=== PATIENT | female | born 1950 | race Caucasian/White ===

== ENCOUNTER 2018-04-14 02:25 | Outpatient (CLI) | payer MEDICARE, BC, SELFPAY ==
--- NOTE | 2018-04-14 11:59 | PTTR_ITS ---
DATE: 04/14/18 SUBJECTIVE: Pt states that she is doing ok for the most part really feels good after the mobilization. OBJECTIVE: Manual therapy: ([id number]). Pt placed in the supine position receiving gentle traction through the long axis of the (R) LE and then placed in side lying receiving hip extension coordinated with knee flexion for mobilizing the rectus femoris and hip flexor. Pt then mobilized with IASTM through the piriformis, lateral gluteals utilizing down regulation techniques via long brush strokes and then cross grain feathering techniques to further soften muscle tension and mechano receptor stimulation. Direct treatment time: 30 minutes Total treatment time: 30 minutes
--- NOTE | 2018-04-14 16:37 | DI.REPORT_ITS ---
SYMPTOM/DIAGNOSIS: OSTEOPENIA, M85.88 DEXA SCAN: The scanogram of the dorsolumbar spine is unremarkable. For the left forearm, a T score of -1.6 and a Z score of 0.2 are within the normal range. For the left hip, a T score of 0.8 and a Z score of 0.5 indicate osteopenia and an increased fracture risk. For the lumbar spine, a T score of - 1.6 and a Z score of 0.3 are consistent with osteopenia and an increased fracture risk.
== END 2018-04-14 02:26 ==
PROVIDERS: PCP Family Medicine; Visit Provider Family Medicine
DX: M85.88 Other specified disorders of bone density and structure, other site (principal)
CPT/HCPCS: 77080

== ENCOUNTER 2018-04-14 14:30 | Outpatient (RCR) | payer MEDICARE, BC, SELFPAY ==
--- NOTE | 2018-03-18 15:59 | PTTR_ITS ---
DATE: 03/18/18 SUBJECTIVE: Trena reporting being quite sore through the right low back and lateral hip. She states that she has been doing some of her HEP although has not been able to get into the [place] to perform her aquatic exercises. OBJECTIVE: Manual therapy: ([id number]). Began in supine position for long axis traction through LE's unilaterally and bilaterally to unload lumbar spine. Perform flexion based stretching including single knee to chest stretch, hamstring stretch and piriformis stretching. She is quite irritated with all motions. In prone position perform stretching of her quads which again is quite irritated. She then receives STM throughout the right QL, lumbar paraspinals, piriformis and lateral hip musculature. She is quite tender over the piriformis and she does not tolerate trigger point release here. She has a follow up next week. Direct treatment time: 25 minutes Total treatment time: 25 minutes Akila Stephenson PTA
--- NOTE | 2018-03-23 14:11 | PTTR_ITS ---
DATE: 03/23/18 SUBJECTIVE: Pt reports being a little sore after last session. Has not been able to start aquatic exercises as of yet due to weather, is planning to begin those today. During session, reports feeling much less sore compared to last treatment. OBJECTIVE: Manual therapy: ([id number]). With pt in supine, stretches applied to glute, piriformis, IT band, hamstring. With pt in prone, STM to QL, iliocostalis, lumbar paraspinals, glute, piriformis. High tone, tps noted, TPR applied to piriformis, glute med, and along inferior aspect of iliac crest. No TP or tenderness noted in low back. Direct treatment time: 30 minutes Total treatment time: 30 minutes
--- NOTE | 2018-03-27 14:42 | PTTR_ITS ---
DATE: 03/27/18 SUBJECTIVE: I am doing okay. I am starting to notice the difference in how I feel. OBJECTIVE: Manual therapy: ([id number]): Patient was placed in supine and mobilized with gentle long axis traction through the right lower extremity with soft movement into hip abduction. She was mobilized with hip flexion under gentle traction to 95 degrees but this was a little more uncomfortable. Patient then stretched through hip extension coordinated with knee flexion for mobilization of the rectus femoris and proximal hip flexor. She was mobilized with hip in neutral and anterior glide of the femur on a fixed pelvis. In sidelying she is mobilized with IASTM through the posterior greater trochanter, lateral gluteals and along the course of the sacrum with down regulation techniques which patient tolerated very well and noted significant improvement in her symptoms. Direct treatment time: 30 minutes of direct patient care
--- NOTE | 2018-03-30 12:09 | PTTR_ITS ---
DATE: 03/30/18 SUBJECTIVE: Reports feeling significantly better, although still having symptoms occasionally, especially after long periods of standing. Symptoms alleviate after sitting for a few minutes. OBJECTIVE: Manual therapy: ([id number]). With pt in supine, unilateral and bilateral unloading of low back / hip. Stretch applied to right hamstring, glute, piriformis, ITB and adductors. Pt turned to prone, STM to right glute region, especially piriformis origin. TPs noted, tenderness reported all along SI border. TPR unsuccessfully applied to origin of piriformis, with pt noting that symptoms increase with prolonged pressure. Moist hot pack applied at end of session x10 minutes. Direct treatment time: 25 minutes Total treatment time: 35 minutes
--- NOTE | 2018-04-06 11:11 | PTTR_ITS ---
DATE: 04/06/18 SUBJECTIVE: I think that things are going pretty well. It definitely feels quite a bit better. OBJECTIVE: Manual therapy: ([id number]): Patient was guided through light long axis traction through the right lower extremity. She was mobilized with stretch of the hamstrings and piriformis with gentle active isolated stretching technique. Patient was gently abducted through the right hip within her range of comfort and then placed in sidelying. Through sidelying patient was mobilized with hip extension coordinated with knee flexion. She is then mobilized with IASTM through the TFL, ITband proximal course, gluteals and piriformis with use of long brush strokes for down regulation. She tolerated treatment well. Direct treatment time: 30 minutes of direct patient care
== END 2018-04-17 23:59 | disposition home or self-care (01) ==
LOC: PT 14:30
PROVIDERS: PCP Family Medicine; Referring Provider Family Medicine; Visit Provider Family Medicine
DX: M25.551 Pain in right hip (principal); M24.851 Other specific joint derangements of right hip, not elsewhere classified; M16.11 Unilateral primary osteoarthritis, right hip; M54.5 Low back pain
CPT/HCPCS: 97140

== ENCOUNTER 2019-02-21 10:05 | Emergency (ER) | payer MEDICARE, BC, SELFPAY ==
[2019-02-21 10:10] VITALS: BP 174/95; PULSE 61; RESP 14; TEMP 36.7; O2SAT 95
--- NOTE | 2019-02-21 10:17 | W.ED.GENAD ---
Discharge Plan Disposition Patient Disposition: HOME Condition: Stable Discharge Details Chief Complaint: Orthopedic Clinical Impression: Left knee sprain Primary Care Provider: Lorraine Garcia ED Provider: Genna Hoyos Home Meds and New Rx's Prescriptions: Continued hydrochlorothiazide 12.5 mg tablet 12.5 mg PO DAILY Qty: 90 RF: 4 prednisone 20 mg tablet 40 mg PO DAILY Qty: 10 RF: 0 venlafaxine 75 mg tablet extended release 24hr 75 mg PO DAILY Qty: 90 RF: 3 No Action calcipotriene 0.005 % cream 1 applic TP PRN PRNRF: 0 clobetasol 0.05 % ointment 1 applic TP PRN PRNRF: 0 Discharge Instructions Instructions: Knee Sprain (ED) Additional Instructions: Rest, ice, elevate left knee as much as possible. Limit weight bearing to allow knee to rest. Use a cane if needed. Apply lew wrap or knee brace to help with pain and swelling. Alternate tylenol and Motrin as needed and directed for pain. If you have no relief in symptoms in the next week, follow-up with orthopedics. Return to the emergency department if you develop any worsening or concerning symptoms of fever, lower leg pain or swelling. Referrals: Joey Esteban MD [ [facility] STAFF PHYSICIAN] - Discharge Data Discharge Date/Time-TO BE ENTERED AT DEPARTURE: 02/21/19 10:34 Discharge Physician: Genna Hoyos Medical Decision Making 68yo F w/ L knee pain and swelling x 5 days after twisting her L knee while getting into a pontoon boat. Minimal left knee edema and pain with range of motion, mostly flexion. No evidence of a septic joint. No calf tenderness. Neurovascularly intact. No evidence of trauma or bony deformity. BP 174/95 on arrival. Rechecked and 135/80. Discussed the differential diagnosis can also include Sneed's cyst, ligament tear but with reported history, appears most likely consistent with sprain. Patient offered x-ray but declined. Will give a dose of ibuprofen. She has not taken any medicine for pain since onset. She is instructed to alternate Tylenol and Motrin for pain, rest, ice, elevate. She is instructed to follow-up with orthopedics if her symptoms do not improve or worsen over the next week. HPI General Mode of arrival: ambulatory. Date/Time Provider Initiated Documentation: 02/21/19 10:06. Limitations to Documentation: no limitations. Information obtained by: patient. HPI Narrative: Patient is a 68-year-old female presents with left knee pain for the past 5 days that started after getting into a pontoon boat. Patient states she feels like when she stepped and she twisted her knee. She states since then she has had left anterior and lateral knee pain. States the pain is worse with flexion and weightbearing. She has not taken any medication for pain. She admits to a remote history of meniscus repair in her left knee. She denies any fever, hip, calf, ankle or foot pain. Related Data Home Medications Medication Instructions Recorded Confirmed hydrochlorothiazide 12.5 mg tablet 12.5 mg PO DAILY #90 tab 10/15/18 02/21/19 prednisone 20 mg tablet 40 mg PO DAILY #10 tab 02/17/19 02/21/19 venlafaxine ER 75 mg 75 mg PO DAILY #90 tab 02/17/19 02/21/19 tablet,extended release 24 hr calcipotriene 1 applic TP PRN PRN 02/21/19 02/21/19 clobetasol 1 applic TP PRN PRN 02/21/19 02/21/19 Previous Rx's Medication Instructions Recorded hydrochlorothiazide 12.5 mg tablet 12.5 mg PO DAILY #90 tab 10/15/18 prednisone 20 mg tablet 40 mg PO DAILY #10 tab 02/17/19 venlafaxine ER 75 mg 75 mg PO DAILY #90 tab 02/17/19 tablet,extended release 24 hr Allergies Allergy/AdvReac Type Severity Reaction Status Date / Time No Known Allergies Allergy Unverified 02/21/19 10:26 General Stated Complaint: Orthopedic PAULA: 4 Review of Systems Review of Systems All systems reviewed & are unremarkable except as noted in HPI and below Constitutional Reports as per HPI, Denies chills and Denies fever(s) Eyes Denies blurry vision ENT Denies dizziness, Denies sore throat and Denies throat swelling Cardiovascular Denies chest pain and Denies dyspnea Respiratory Denies cough and Denies dyspnea Gastrointestinal Denies abdominal pain, Denies diarrhea and Denies vomiting Genitourinary Denies hematuria and Denies dysuria Musculoskeletal Denies back pain, Denies numbness and Reports other (left knee pain ) Integumentary/Breasts Denies lesions and Denies rash Neurologic Denies dizziness, Denies focal weakness and Denies numbness Allergic/Immunologic Denies throat swelling [facility] Medical History Osteoarthritis of left knee (Chronic) Psoriasis (Chronic) Osteopenia (Chronic 03/03/18) Essential hypertension (Chronic 03/03/18) Depression (Chronic) Degeneration of lumbar intervertebral disc (Chronic) Cervical spondylosis (Chronic) Cervical radiculopathy (Chronic) Acute right-sided low back pain with right-sided sciatica (Chronic 03/03/18) Syncope (Resolved) Surgical History H/O medial meniscus repair of left knee (Acute) Family History Mother Diabetes Renal failure Father NE (myocardial infarction) Neoplasm Brother No problems noted. Brother No problems noted. Brother No problems noted. Grandfather Diabetes Heart disease Grandfather No problems noted. Grandmother Diabetes Grandmother Neoplasm Daughter No problems noted. Daughter No problems noted. Social History Smoking/Tobacco Use Status: Never Alcohol Intake: current Alcohol Intake frequency: a few times a month Substance use type: does not use Household members: other Details: 2 Duration: 15-30 minutes/day Frequency: daily Dana/Buddhism: Temple Seatbelt use: always Helmet use: Yes Helmet use: always Do you feel safe at home: Yes Exam Const General: cooperative, healthy appearing and no acute distress HENMT Head: normal to inspection Mouth: oral mucosae normal Eyes General: appearance normal, both eyes and all related structures Neck Neck: normal visual inspection Resp Effort & Inspection: normal respiratory effort and able to speak in complete sentences Cardio Rate: regular rate Skin General skin exam: no rashes or lesions noted Neuro General: alert, awake and oriented x3 Motor: muscle tone normal throughout Extrem Other: L knee: Minimal anterior knee edema and pain with range of motion, worse with flexion. No erythema. No pain with extension. Negative anterior/posterior drawer tests. Some pain with varus stress. No laxity with varus stress. No pain or laxity with valgus or varus stress. Negative Kody's test. No left calf tenderness. Left DP/PT pulses intact. Psych Appearance: grossly normal Affect: normal affect Course Vital Signs Temperature 98.1 F 02/21/19 10:10 Pulse 61 02/21/19 10:10 Respiratory Rate 14 02/21/19 10:10 Blood Pressure 174/95 H 02/21/19 10:10 Pulse Oximetry 95 02/21/19 10:10 Temperature 98.1 F 02/21/19 10:10 Temperature Source Temporal Artery Scan 02/21/19 10:10 Pulse 61 02/21/19 10:10 Respiratory Rate 14 02/21/19 10:10 Blood Pressure 174/95 H 02/21/19 10:10 Blood Pressure Position Sitting 02/21/19 10:10 Pulse Oximetry 95 02/21/19 10:10 Oxygen Delivery Method Room Air 02/21/19 10:10 Oxygen Flow Rate 0 02/21/19 10:10 Pain Level 8 02/21/19 10:10
[2019-02-21] MEDS: Ibuprofen 600 MG TAB PO (10:25)
[2019-02-21 10:27] VITALS: BP 135/80; PULSE 56; RESP 18; O2SAT 98
== END 2019-02-21 10:34 | disposition home or self-care (01) ==
PROVIDERS: Emergency Provider Physician Assistant; PCP Family Medicine
DX: S83.92XA Sprain of unspecified site of left knee, initial encounter (principal); I10 Essential (primary) hypertension; M17.12 Unilateral primary osteoarthritis, left knee; V93.83XA Other injury due to other accident on board other powered watercraft, initial encounter
CPT/HCPCS: 99282

== ENCOUNTER 2019-03-02 01:16 | Outpatient (CLI) | payer MEDICARE, BC, SELFPAY ==
--- NOTE | 2019-03-02 13:00 | DI.MRI_ITS ---
SYMPTOMS/DIAGNOSIS: LOW BACK PAIN MRI OF THE LUMBAR SPINE: Routine noncontrast examination was performed. Comparison is 11/17/13. The conus medullaris has a normal appearance and location. At L 5 - S 1 there is degenerative disc disease. There is a small diffuse disc bulge and degenerative changes of the facets. No significant central spinal canal stenosis is seen. Mild narrowing of the neural foramen is seen bilaterally. At L 4 - 5 there is degenerative disc disease. There is a mild diffuse disc bulge. There are degenerative changes of the facets. There is mild narrowing of the left neural foramen. No significant right neural foraminal stenosis is seen. At L 3 - 4 there is degenerative disc disease. There is a mild diffuse disc bulge. No focal disc herniation, central spinal canal or significant neural foraminal stenosis is present. L 2 - 3 and L 1 - 2 shows no focal disc herniation, central spinal canal or neural foraminal stenosis. The marrow signal is within normal limits apart from the degenerative endplate signal changes. IMPRESSION: Mild multi-level degenerative disc disease and facet arthropathy with multiple level mild neural foraminal narrowing as described above.
== END 2019-03-02 01:36 ==
PROVIDERS: PCP Family Medicine; Visit Provider Family Medicine
DX: M54.5 Low back pain (principal); M51.37 Other intervertebral disc degeneration, lumbosacral region; M47.817 Spondylosis without myelopathy or radiculopathy, lumbosacral region
CPT/HCPCS: 72148

== ENCOUNTER 2019-03-17 13:17 | Outpatient (CLI) | payer MEDICARE, BC, SELFPAY ==
--- NOTE | 2019-03-17 10:46 | DI.RAD_ITS ---
SYMPTOMS/DIAGNOSIS: RT SHOULDER PAIN, LT KNEE PAIN RIGHT SHOULDER: No bony or joint abnormality is identified. LEFT KNEE: The medial and lateral tibiofemoral joint spaces are intact. There is narrowing of the patellofemoral joint and hypertrophic spurring is identified. Findings consistent with severe DJD involving the patellofemoral joint.
== END 2019-03-17 13:37 ==
PROVIDERS: PCP Family Medicine; Referring Provider Family Medicine; Visit Provider Student in an Organized Health Care Education/Training Program
DX: M25.562 Pain in left knee (principal); S49.91XA Unspecified injury of right shoulder and upper arm, initial encounter; M25.511 Pain in right shoulder; M17.12 Unilateral primary osteoarthritis, left knee; M75.81 Other shoulder lesions, right shoulder; X58.XXXA Exposure to other specified factors, initial encounter; I10 Essential (primary) hypertension
CPT/HCPCS: 20610; 73562; 99204; 99214; 73030; J1040

== ENCOUNTER → 2019-04-29 09:48 | Outpatient (BNVA) | payer MEDICARE, BC, SELFPAY | PROVIDERS: PCP Family Medicine; Referring Provider Family Medicine; Visit Provider Student in an Organized Health Care Education/Training Program | DX: M17.12 Unilateral primary osteoarthritis, left knee; M25.511 Pain in right shoulder; M75.81 Other shoulder lesions, right shoulder; I10 Essential (primary) hypertension | CPT/HCPCS: 99213 ==

== ENCOUNTER 2019-06-04 01:39 | Outpatient (CLI) | payer MEDICARE, BC, SELFPAY ==
--- NOTE | 2019-06-04 09:28 | DI.MRI_ITS ---
EXAM: MR UPPER JOINT RT WO CLINICAL HISTORY: Persistent R shoulder pain and weakness M25.511 TECHNIQUE: Multiplanar multisequence MRI was performed. COMPARISON: XR shoulder RT complete 2+V from 03/17/2019 FINDINGS: There is a small glenohumeral joint effusion. Fluid versus synovial cyst or ganglion is seen in the s ubcoracoid bursa. There is small amount of fluid in the subacromial subdeltoid bursa. There are mild degenerative changes of the AC joint causing some impingement on the distal supraspinatus muscle. The re is no muscle atrophy. There is mild thickening anteriorly in the supraspinatus tendon as well as s ome increased signal within the tendon. No focal tear is visible. The findings are consistent with te ndinosis. Infraspinatus, subscapularis and biceps tendons appear intact. No labral defects are seen. The marrow signal appears normal. IMPRESSION: Supraspinatus tendinosis. Fluid versus ganglion or synovial cyst in the subcoracoid bursa.
== END 2019-06-04 01:59 ==
PROVIDERS: PCP Family Medicine; Visit Provider Student in an Organized Health Care Education/Training Program
DX: M25.511 Pain in right shoulder (principal); M75.81 Other shoulder lesions, right shoulder; M25.411 Effusion, right shoulder; M19.011 Primary osteoarthritis, right shoulder
CPT/HCPCS: 73221

== ENCOUNTER → 2019-06-10 14:05 | Outpatient (BNVA) | payer MEDICARE, BC, SELFPAY | PROVIDERS: PCP Family Medicine; Referring Provider Family Medicine; Visit Provider Student in an Organized Health Care Education/Training Program | DX: M71.311 Other bursal cyst, right shoulder (principal); M75.81 Other shoulder lesions, right shoulder; I10 Essential (primary) hypertension | CPT/HCPCS: 99213 ==

== ENCOUNTER 2019-07-14 07:47 | Day surgery (SDC) | payer MEDICARE, BC, SELFPAY ==
[2019-07-14] VITALS (7 sets, daily range): BP systolic 109–126; BP diastolic 34–79; PULSE 60–65; RESP 12–18; TEMP 36.4–36.8; O2SAT 93–96
[2019-07-14] MEDS: Lactated Ringers 1,000 ML 80 ML IV ×2 (08:10→11:33)
[2019-07-14] MEDS: Bupivacaine 0.5% Pres-Free 30 ML VIAL (08:50)
[2019-07-14] MEDS: Bupivacaine LIPOSOME/PF 133 MG/10 ML VIAL IJ (08:50)
[2019-07-14] MEDS: ceFAZolin 2 GM/50 ML BAG IVPB (08:55)
[2019-07-14] MEDS: EPINEPHrine 1 MG/ML AMP pres-free (10:00)
[2019-07-14] MEDS: Normal Saline Flush 10 ML SYR IV (11:19)
[2019-07-14] MEDS: HYDROmorphone 2 MG/ML VIAL IVP (11:19)
--- NOTE | 2019-07-14 11:25 | W.PM.DSUDISC ---
Discharge Plan Disposition Patient Disposition: HOME Condition: Good Discharge Details Reason For Visit: (R) SHOULDER GANGLION CYST, RTC TENDONITIS Attending Provider: Joey Esteban Primary Care Provider: Bentley Hernandez Home Meds and New Rx's Prescriptions: New acetaminophen 500 mg tablet 500 mg PO Q6H PRN (Reason: pain) Qty: 90 RF: 3 aspirin 81 mg tablet,delayed release (DR/EC) 81 mg PO DAILY Qty: 30 RF: 0 ibuprofen 600 mg tablet 600 mg PO TID PRNQty: 90 RF: 3 hydrocodone-acetaminophen 7.5-325 mg tablet 1 tab PO Q6H PRN (Reason: pain) Qty: 8 RF: 0 Continued hydrochlorothiazide 12.5 mg tablet 12.5 mg PO DAILY Qty: 90 RF: 4 venlafaxine 75 mg tablet extended release 24hr 75 mg PO DAILY Qty: 90 RF: 3 calcipotriene 0.005 % cream 1 applic TP PRN PRNRF: 0 Discontinued acetaminophen 500 mg capsule 500 mg PO .COMPLEX PRNRF: 0 ibuprofen 200 mg capsule 400 mg PO BID PRNRF: 0 Discharge Instructions Stand Alone Forms: Eulalia Shoulder Arthro Referrals: Joey Esteban MD [ [facility] STAFF PHYSICIAN] - Equipment/Supplies: Sling Activity:: Activity as Tolerated Remove Dressings/Wound Care:: 72 hours Shower/Bathe:: 72 hours Diet:: As Tolerated Discharge Orders Discharge Orders: Discharge Order (Routine); Ordered 07/14/19 Ordered By: Joey Esteban DS: Diagnosis Discharge Diagnosis (1) Right rotator cuff tendonitis: Status: Acute (2) Synovial cyst of shoulder: Status: Acute (3) Arthritis of right acromioclavicular joint: Status: Acute
--- NOTE | 2019-07-14 12:02 | W.PM.OP ---
Date of service: 07/14/19 Time of Service: 12:02 Operative Note Operative Note DATE OF PROCEDURE: 07/14/19 PRE-OP DIAGNOSIS: Right Shoulder Rotator Cuff Tendinitis, AC Arthritis, Intraarticular Cyst POST-OP DIAGNOSIS: other (Right Shoulder Partial Articular and Bursal Rotator Cuff Tear, AC Arthritis, Inflammatory Synovitis, Loose Bodies, Subacromial Spur and Impingement.) PROCEDURE: - Mini-Open Distal Clavicle Excision - Extensive debridement of anterior and posterior glenohumeral joint and rotator cuff and rotator interval - Subacromial Debridement with Acromioplasty SURGEON: Joey Esteban SURGICAL TECHNOLOGY INSTRUCTOR: Tushar Kaba ANESTHESIA: GETA and regional ESTIMATED BLOOD LOSS: 0 PATHOLOGY: none sent COMPLICATIONS: None Patient was transported to: PACU Patient's condition: stable Indications: I have seen Trena in clinic for a painful shoulder. Pathology was confirmed based on MRI and exam findings. Nonoperative measures were exhausted but disability and pain persisted. I discussed shoulder arthroscopy and procedures. I reviewed the risks of the procedures to include, but not limited to, bleeding, infection, pain, stiffness, damage to nerves or vessels, recurrence, hardware failure, blood clot. Despite these risks, the patient elected to proceed. Findings: There were signs of arthrosis of the distal clavicle; a 1cm wedge was resected A diagnostic arthroscopy was performed with the following findings: Articular Side - Glenohumeral Joint: Grade II/III chondromalacia over the superior half of the humeral head. Grade I changes over the anterior glenoid. - Labrum: Fraying of the anteiror labrum and Type II SLAP tear with elevation of the superior labrum from the glenoid. - Cuff: Partial tearing of the crescent, approximatetly 4-5mm - Biceps: Diffuse inflammatory changes. Subacromial Side - Bursal: Thickened bursitis throughout - Rotator Cuff: Small area of partial tearing over the posterior greater tuberosity approximately 0.5x0.5cm and 3-4 mm in depth - Pointed anterolateral spur from the acromion. Procedure Description: Trena was greeted in the preoperative holding area where the correct side was identified and marked. The consent was reviewed with the patient and signed. The history and physical was updated. All questions were answered. Trena was taken back to the PACU for administration of an intrascalene nerve block. She was then taken to the operating room. The patient was placed into the supine position on the operating room table. A general anesthetic was administered. She was then positioned in the beach chair position. All bony prominences were well padded. The head was placed in a foam shaft headman in a neutral position. Prophylactic antibiotics in the form of Cefazolin were administered. The right arm/shoulder was then prepped with Chloraprep and draped in a standard fashion with stockinette and shoulder drape. A timeout to confirm correct identity, side and site, procedure, allergies, anesthesia, and medical concerns was performed. The arm was placed into a pneumatic mandel, [id number]. The shoulder arthroscopy was then performed. The glenohumeral joint was injected with 20 cc of normal saline with good flow back. A standard posterior portal was made and the joint was entered atraumatically with a blunt arthroscope. Once inside we had good visualization of the structures of the glenohumeral joint. On the MRI, she had an apparent intraarticular cyst. However, there was no separate structure identied. There was notable synovitis and inflammatory change anteriorly within the rotator interval and around the subscapularis. An anterior portal was established with spinal needle localization. A 6.5 mm cannula was inserted. A probe was then used to perform a diagnostic arthroscopy. There is noted to be some significant cartilage damage of the glenoid humeral joint. The anterior glenoid had Grade I chondromalacia and the superior humeral head had Grade II/III chondromalacia. The labrum was frayed anteriorly and superiorly but intact posteriorly. There were two small loose bodies in the inferior pouch. These were removed with a shaver. The superior rotator cuff was attached to the tuberosity but there was some fraying within the crescent representing a partial tear of about 4-5mm depth. The biceps tendon had notable inflammatory change and its anchor had some associated tearing of the labrum with some mild lift-off. The subscapularis was intact. Using a shaver and letter cautery the rotator interval was opened. There was no cystic structure encountered but thickened capsule and synovitis and inflammatory tissue. The subscapularis was ensured to be free both posteriorly and anteriorly. Electrocautery was used to perform biceps tenotomy. The labrum was debrided with shaver and with electrocautery. The partial tearing and frayed tissue of the superior rotator cuff was debrided down to stable tissue. The labrum was contoured debrided from anterior to posterior, 11-4 o'clock. The arthroscope was then inserted into the subacromial space. The 6.5 mm cannula was placed lateral to the CA ligament. A complete bursectomy is performed anteriorly, posteriorly, and laterally with electrocautery and shaver. This had excellent exposure of the rotator cuff. The bursal side rotator cuff was intact except for a very small area over the posterior greater tuberosity. This measured approximately 0.5 cm x 0.5 cm in size at the far lateral aspect of the tuberosity with a depth of 3 to 4 mm. This partial tearing was debrided. There was a large anterolateral spur. Using a spinal needle a lateral portal was established. This became the viewing portal. A 5.0 mm gabe was then inserted from the posterior portal. The anterolateral corner of the acromion was then resected in plane with the posterior slope of the acromion. The scope equipment was removed from the shoulder. Excess fluid was evacuated. The portal sites were closed with 3-0 Monocryl. The wounds were dressed with Steri-Strips, 4 x 4's, ABDs, Medipore tape. A sling was applied. The patient tolerated the procedure well and was returned to the PACU in a stable condition suffering no known complication.
== END 2019-07-14 13:04 | disposition home or self-care (01) ==
PROVIDERS: PCP Family Medicine; Visit Provider Student in an Organized Health Care Education/Training Program
PROC: (CPT 29805; principal; 2019-07-14 09:00)
DX: M75.111 Incomplete rotator cuff tear or rupture of right shoulder, not specified as traumatic (principal); M19.011 Primary osteoarthritis, right shoulder; M65.811 Other synovitis and tenosynovitis, right shoulder; M24.011 Loose body in right shoulder; M75.41 Impingement syndrome of right shoulder; G89.18 Other acute postprocedural pain; M94.211 Chondromalacia, right shoulder; M24.811 Other specific joint derangements of right shoulder, not elsewhere classified; M75.21 Bicipital tendinitis, right shoulder; M75.51 Bursitis of right shoulder; I10 Essential (primary) hypertension
CPT/HCPCS: 29823; 29826; 23120; 76942; J0171; J0690; J1100; J1885; J2250; J2370; J2405

== ENCOUNTER → 2019-07-26 10:58 | Outpatient (BNVA) | payer MEDICARE, BC, SELFPAY | PROVIDERS: PCP Family Medicine; Referring Provider Family Medicine; Visit Provider Student in an Organized Health Care Education/Training Program | DX: Z47.89 Encounter for other orthopedic aftercare (principal); M19.011 Primary osteoarthritis, right shoulder; M75.81 Other shoulder lesions, right shoulder; M71.319 Other bursal cyst, unspecified shoulder ==

== ENCOUNTER → 2019-08-23 08:53 | Outpatient (BNVA) | payer MEDICARE, BC, SELFPAY | PROVIDERS: PCP Family Medicine; Referring Provider Family Medicine; Visit Provider Student in an Organized Health Care Education/Training Program | DX: Z47.89 Encounter for other orthopedic aftercare (principal); I10 Essential (primary) hypertension ==

== ENCOUNTER 2020-04-17 02:17 | Outpatient (CLI) | payer MEDICARE, BC, SELFPAY ==
--- NOTE | 2020-04-17 08:15 | DI.MAMMO_ITS ---
EXAM: MG MAMMO SCREENING CLINICAL HISTORY: screening, Z12.39 TECHNIQUE: Bilateral full field digital CC and MLO mammographic images were obtained with 3D tomosyn thesis and utilizing computer aided detection (CAD). COMPARISON: Available for comparison. FINDINGS: Masses/Architectural Distortion: None seen. Microcalcifications: No suspicious pleomorphic-type are seen. Skin Thickening/Nipple Retraction: None. IMPRESSION: 1. No significant interval change with no specific features of malignancy noted. 2. Unless there is more urgent need, screening mammography is recommended, as per [employer] guidelines. BI-RADS Category 1 - Negative Breast Density - Category B - Scattered areas of fibroglandular density A negative radiographic report should not delay biopsy if a dominant or clinically suspicious mass is present. Up to ten percent of cancers are not identified on mammography. A negative report may reinforce clinical impression. Adenosis and dense breasts may obscure an underlying neoplasm. False positive reports average 6 to 10%. Patient will receive a letter notifying them of these results.
== END 2020-04-17 02:37 ==
PROVIDERS: PCP Family Medicine; Visit Provider Family Medicine
DX: Z12.31 Encounter for screening mammogram for malignant neoplasm of breast (principal)
CPT/HCPCS: 77063; 77067

== ENCOUNTER → 2020-05-12 09:18 | Outpatient (BNVA) | payer MEDICARE, BC, SELFPAY | PROVIDERS: PCP Family Medicine; Referring Provider Family Medicine; Visit Provider Physical Therapy Assistant | DX: Z12.11 Encounter for screening for malignant neoplasm of colon (principal); Z80.0 Family history of malignant neoplasm of digestive organs ==

== ENCOUNTER 2020-05-26 10:16 | Day surgery (SDC) | payer MEDICARE, BC, SELFPAY ==
[2020-05-26 10:45] VITALS: BP 129/85; PULSE 74; RESP 16; TEMP 36.5; O2SAT 97
[2020-05-26] MEDS: Lactated Ringers 1,000 ML 80 ML IV (11:33)
--- NOTE | 2020-05-26 12:27 | W.PM.DSUDISC ---
Discharge Plan Disposition Patient Disposition: HOME Condition: Good Discharge Details Reason For Visit: Colonoscopy Attending Provider: Esperanza Garcia Primary Care Provider: Lorraine Garcia Home Meds and New Rx's Prescriptions: Continued venlafaxine 75 mg tablet extended release 24hr 150 mg PO DAILY Qty: 180 RF: 3 hydrochlorothiazide 12.5 mg tablet 12.5 mg PO DAILY Qty: 90 RF: 4 acetaminophen 500 mg tablet 500 mg PO Q6H PRN (Reason: pain) Qty: 90 RF: 3 aspirin 81 mg tablet,delayed release (DR/EC) 81 mg PO DAILY Qty: 30 RF: 0 ibuprofen 600 mg tablet 600 mg PO TID PRNQty: 90 RF: 3 calcipotriene 0.005 % cream 1 applic TP PRN PRNRF: 0 Discontinued polyethylene glycol 3350 17 gram/dose powder 238 g PO ONCE Qty: 238 RF: 0 bisacodyl [Dulcolax (bisacodyl)] 5 mg tablet,delayed release (DR/EC) 5 mg PO ONCE Qty: 4 RF: 0 Discharge Instructions Additional Instructions: Findings: Two small polyps were removed from the rectum. My office will contact you with biopsy results. Follow up: Plan for colonoscopy in 5 years. Please call if you develop: fevers >101.5 Nausea or Vomiting Abdominal pain that is not transient DAY SURGERY UNIT POST COLONOSCOPY INSTRUCTIONS 1. Because there will be medication in your system for the next 24 hours, you may feel a little sleepy. Your coordination will be affected. Therefore: a. Do not drive or operate dangerous equipment for 24 hours. b. Do not drink alcohol beverages for 24 hours (not even beer). c. Plan to go home and rest for the day. 2. Generally there are no restrictions on your activity after a day or so has gone by, but you may feel a bit fatigued for a few days. 3 After you arrive home you may have a light meal and return to a normal diet as you can tolerate it without feeling sick to your stomach. 4. After surgery, you may feel pain or discomfort. This should be only transient, but if it persists please contact your doctor. 5. If there are any questions regarding the findings of your procedure, please feel free to contact your doctor. 6. If you are unable to contact your doctor with a problem, contact the hospital at [phone]. 7. Continue all your regular medications unless directed otherwise. I understand the above instructions and have no questions. Signature of Patient or Responsible Adult Escort Date/Time Name of Responsible Adult Escort Signature of Nurse Date/Time Activity:: Activity as Tolerated Diet:: As Tolerated Discharge Orders Discharge Orders: Discharge Order (Routine); Ordered 05/26/20 Ordered By: Esperanza Garcia DS: Diagnosis Discharge Diagnosis (1) Family history of colon cancer: Status: Acute (2) Rectal polyp: Status: Acute
--- NOTE | 2020-05-26 12:31 | W.COLOREPORT ---
Colonoscopy Report Date of procedure: 05/26/20 Pre-op diagnosis general: FH colon cancer Post-op diagnosis procedure note: other (Rectal polyps) Procedure: Colonoscopy with cold forceps polypectomy Surgeon: Esperanza Garcia Anesthesia proc note operative: MAC Indications: This 69 year old woman presents for routine colonoscopy. Her last one in 2014 was normal. Her father was treated for colon cancer. Procedure Description: The patient was placed in the left Cr position. Propofol was titrated to sedation. Digital rectal examination revealed no abnormalities. The scope was advanced to the cecum without difficulty. The ileocecal valve and appendiceal orifice were clearly identified. The prep was good. The scope was slowly withdrawn over the course of greater than 6 minutes with no abnormalities seen in the ascending, transverse, descending, sigmoid colon. Two diminuitive polyps were removed with the cold forceps from the rectum and sent in the same specimen container. The rectum was otherwise normal including on retroflexed view. The patient tolerated the procedure well and was stable to recovery. Plan for routine screening colonoscopy in 5 years or sooner if symptoms indicate.
--- NOTE | 2020-05-26 13:04 | BOWEL_PTH ---
PATIENT: Trena Leone LOC: [facility] U#:[id number] AGE/SX: 69/F ROOM: RE05/26/[address]: Esperanza Garcia MD : 1950 BED: DIS: 05/26/2020 SPEC #: [id number] RECD: 05/26/20 17:52 STATUS: [facility] REQ #: [id number] ALE: 05/26/20 13:[address]: Esperanza Garcia DEPT: Surgical Specimen RECD BY: Jaylene Padilla ENTERED: 05/26/20 17:53 SP TYPE: Bowel OTHR DR: Lorraine Garcia MD, DC Tissues: 1 - BIOPSY BOWEL Procedures: GROSS AND MICRO LEVEL 4 Comments: [id number]
[2020-05-26 13:50] VITALS: BP 130/80; PULSE 63; RESP 16; TEMP 36.4; O2SAT 98
== END 2020-05-26 14:00 | disposition home or self-care (01) ==
PROVIDERS: PCP Family Medicine; Visit Provider Surgery
PROC: 0DJD8ZZ Inspection of Lower Intestinal Tract, Via Natural or Artificial Opening Endoscopic (ICD-10-PCS; CPT 45378; principal; 2020-05-26 12:30)
DX: Z12.11 Encounter for screening for malignant neoplasm of colon (principal); K62.1 Rectal polyp; Z80.0 Family history of malignant neoplasm of digestive organs; I10 Essential (primary) hypertension
CPT/HCPCS: 45380; 88305

== ENCOUNTER 2020-05-29 14:03 | Outpatient (CLI) | payer MEDICARE, BC, SELFPAY ==
--- NOTE | 2020-05-29 13:00 | DI.RAD_ITS ---
EXAM: XR KNEE RT 3V AP,LAT,BRITNI CLINICAL HISTORY: right knee pain. TECHNIQUE: 2D digital imaging was performed. COMPARISON: CR XR knee LT 3V AP,lat,britni from 03/17/2019 FINDINGS: BONES: No acute fracture is present. No bony destructive lesion is seen. JOINTS: The knee is normally aligned. No joint effusion is seen. Mild degenerative changes are seen i n the knee characterized by joint space narrowing and periarticular spurring. The findings are most marked in the medial femoral tibial joint. SOFT TISSUE: Normal. IMPRESSION: Mild degenerative changes of the right knee. DATA REPOSITORY: RADIATION DOSE DELIVERED:
== END 2020-05-29 14:23 ==
PROVIDERS: PCP Family Medicine; Referring Provider Family Medicine; Visit Provider Student in an Organized Health Care Education/Training Program
DX: M17.11 Unilateral primary osteoarthritis, right knee (principal); M17.12 Unilateral primary osteoarthritis, left knee; M25.562 Pain in left knee; M25.561 Pain in right knee; I10 Essential (primary) hypertension
CPT/HCPCS: 20610; 73562; 99214; J1040

== ENCOUNTER 2020-05-29 21:34 | Outpatient (REF) | payer MEDICARE, BC, SELFPAY | END 2020-05-29 21:54 | LOC: LBN 21:34 | PROVIDERS: PCP Family Medicine; Visit Provider Physician Assistant | DX: N39.0 Urinary tract infection, site not specified (principal) | CPT/HCPCS: 87077; 87086; 87186 ==

== ENCOUNTER 2020-07-06 08:39 | Outpatient (CLI) | payer MEDICARE, BC, SELFPAY ==
[2020-07-15 08:05] LABS: SARS-CoV-2 Specimen Source Nasal/Nares
[2020-07-15 08:06] LABS: SARS-CoV-2 RNA Undetected (Undetected)
== END 2020-07-06 08:59 ==
PROVIDERS: PCP Family Medicine; Visit Provider Family Medicine
DX: Z11.59 Encounter for screening for other viral diseases (principal)
CPT/HCPCS: U0003

== ENCOUNTER 2020-12-21 13:23 | Outpatient (CLI) | payer MEDICARE, BC, SELFPAY ==
--- NOTE | 2020-12-21 10:30 | DI.RAD_ITS ---
Exam(s) XR SHOULDER LT COMPLETE 2+V EXAM: XR SHOULDER LT COMPLETE 2+V CLINICAL HISTORY: pain TECHNIQUE: COMPARISON: CR XR shoulder RT complete 2+V from 03/17/2019 FINDINGS: Three views were obtained. The cartilaginous joint space of glenohumeral joint appears fairly well m aintained. There are mild marginal osteophytes glenohumeral acromioclavicular joints. No other or s oft tissue abnormality seen. IMPRESSION: Mild degenerative changes as described above. RADIATION DOSE DELIVERED: Total DLP
== END 2020-12-21 13:24 | disposition home or self-care (01) ==
LOC: DIORS 13:24
PROVIDERS: PCP Family Medicine; Referring Provider Family Medicine; Visit Provider Physician Assistant Surgical
DX: M25.512 Pain in left shoulder (principal); G89.11 Acute pain due to trauma; M17.11 Unilateral primary osteoarthritis, right knee; M17.12 Unilateral primary osteoarthritis, left knee; M75.22 Bicipital tendinitis, left shoulder; M75.82 Other shoulder lesions, left shoulder; M25.711 Osteophyte, right shoulder
CPT/HCPCS: 20610; 99213; 73030; J1040

== ENCOUNTER → 2021-01-22 10:36 | Outpatient (BNVA) | payer MEDICARE, BC, SELFPAY | PROVIDERS: PCP Family Medicine; Referring Provider Family Medicine; Visit Provider Student in an Organized Health Care Education/Training Program | DX: M75.22 Bicipital tendinitis, left shoulder (principal); M25.512 Pain in left shoulder; G89.11 Acute pain due to trauma; M75.102 Unspecified rotator cuff tear or rupture of left shoulder, not specified as traumatic; W19.XXXD Unspecified fall, subsequent encounter | CPT/HCPCS: 99213 ==

== ENCOUNTER → 2021-01-30 00:40 | Outpatient (CLI) | payer MEDICARE, BC, SELFPAY ==
--- NOTE | 2021-01-30 08:30 | DI.MRI_ITS ---
Exam(s) MR UPPER JOINT LT WO EXAM: MR UPPER JOINT LT WO CLINICAL HISTORY: TENDINITIS LT ROTATOR CUFF,TENDINITIS LT SHOULDER,M75.82,M75.22. TECHNIQUE: Multiplanar multisequence MRI was performed. COMPARISON: MR MR UPPER JOINT RT WO from 06/04/2019 CR XR SHOULDER LT COMPLETE 2+V from 12/21/2020 CR XR SHOULDER LT COMPLETE 2+V from 12/21/2020 FINDINGS: The examination is limited due to patient motion artifact. BONES: There is no fracture or contusion pattern. JOINTS: Mild degenerative changes are seen at the acromioclavicular joint. The glenohumeral joint is normal. Small amount of fluid in the glenohumeral joint. There is a 5 mm loose body in the inferior aspect of the glenohumeral joint. TENDONS: Supraspinatus: There is tendinosis of the supraspinatus tendon. There does appear to be a small part ial bursal surface tear of the supraspinatus tendon. Infraspinatus: Tendinosis of the infraspinatus tendon. No evidence of a tear. Subscapularis: There is tendinosis of the subscapularis tendon. No evidence of a tear. Teres Minor: Unremarkable. Biceps and [place]: Hyperintense signal and thickening is seen of the biceps tendon consistent with a partial tear and/or tendinosis. MUSCLES: Unremarkable. GLENOID LABRUM: Unremarkable on this noncontrast examination. SOFT TISSUES: Unremarkable. LIGAMENTS: Unremarkable. OTHER: Subacromial and subdeltoid bursae are unremarkable. IMPRESSION: 1. Hyperintense signal and thickening of the biceps tendon suspicious for partial tear and/or tendino sis. 2. Tendinosis involving the rotator cuff tendons. 3. Findings suspicious for small partial bursal surface tear of the supraspinatus tendon. 4. 5 mm loose body in the glenohumeral joint. DATA REPOSITORY:
== END ==
PROVIDERS: PCP Family Medicine; Visit Provider Student in an Organized Health Care Education/Training Program
DX: M75.22 Bicipital tendinitis, left shoulder (principal); M77.8 Other enthesopathies, not elsewhere classified; M24.012 Loose body in left shoulder
CPT/HCPCS: 73221

== ENCOUNTER → 2021-02-26 12:48 | Outpatient (BNVA) | payer MEDICARE, BC, SELFPAY | PROVIDERS: PCP Family Medicine; Referring Provider Family Medicine; Visit Provider Physician Assistant | DX: M75.102 Unspecified rotator cuff tear or rupture of left shoulder, not specified as traumatic (principal); M75.82 Other shoulder lesions, left shoulder; M75.22 Bicipital tendinitis, left shoulder | CPT/HCPCS: 20610; J1040 ==

== ENCOUNTER 2021-04-12 01:33 | Outpatient (CLI) | payer MEDICARE, BC, SELFPAY ==
--- NOTE | 2021-04-12 07:00 | DI.US_ITS ---
Exam(s) US PELVIS TRANSVAGINAL EXAM: US PELVIS TRANSVAGINAL CLINICAL HISTORY: pelvic pain, low back pain, R10.2, M54.5 TECHNIQUE: Ultrasound of the pelvis was performed both transabdominal and transvaginal. COMPARISON: None FINDINGS: UTERUS: Uterus retroverted. Measures 6 cm length x 3 cm AP x 4 cm wide. There is a 12 x 10 millimeter fibroid at the level the fundus. Endometrial thickness measures 3-4 mm. There is no fluid in the endometrial canal. CERVIX: There are no obvious nabothian cysts. RIGHT OVARY: Measures 1.6 x 1.6 x 1.1 cm No significant cysts nor masses evident in the right ovary. Color flow was demonstrated within LEFT OVARY: Measures 0.9 x 1.5 x 0.9 cm No significant cysts nor masses evident in the left ovary. Color flow demonstrated within the ovary. CUL-DE-SAC: A tiny amount free fluid anterior to the uterine fundus IMPRESSION: 1. Small 12 x 10 millimeter uterine fibroid near the fundus 2. Endometrial thickness 3-4 millimeters. 3. No abnormal ovarian findings. Small amount of free fluid adjacent to the uterus. DATA REPOSITORY:
== END 2021-04-12 01:53 ==
PROVIDERS: PCP Family Medicine; Visit Provider Family Medicine
DX: M54.5 Low back pain (principal); R10.2 Pelvic and perineal pain; D25.9 Leiomyoma of uterus, unspecified; R93.89 Abnormal findings on diagnostic imaging of other specified body structures; N85.4 Malposition of uterus
CPT/HCPCS: 76830; 76856

== ENCOUNTER → 2021-06-06 09:51 | Outpatient (BNVA) | payer MEDICARE, BC, SELFPAY | PROVIDERS: PCP Family Medicine; Referring Provider Family Medicine | DX: M17.11 Unilateral primary osteoarthritis, right knee (principal); M17.12 Unilateral primary osteoarthritis, left knee | CPT/HCPCS: 20610; J1040 ==

== ENCOUNTER → 2021-09-13 13:40 | Outpatient (BNVA) | payer MEDICARE, BC, SELFPAY | PROVIDERS: PCP Family Medicine; Referring Provider Family Medicine | DX: M17.11 Unilateral primary osteoarthritis, right knee (principal); M17.12 Unilateral primary osteoarthritis, left knee | CPT/HCPCS: 20610; J1040 ==

== ENCOUNTER 2021-09-30 12:03 | Emergency (ER) | payer MEDICARE, BC, SELFPAY ==
[2021-09-30 12:12] VITALS: BP 163/94; PULSE 73; RESP 18; TEMP 36.4; O2SAT 97
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
[2021-09-30] MEDS: Ibuprofen 200 MG TAB PO (12:50)
[2021-09-30] MEDS: oxyCODONE 5 MG TAB PO (12:50)
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
== END 2021-09-30 13:43 | disposition home or self-care (01) ==
PROVIDERS: Emergency Provider Physician Assistant; PCP Family Medicine
DX: S42.292A Other displaced fracture of upper end of left humerus, initial encounter for closed fracture (principal); V86.52XA Driver of snowmobile injured in nontraffic accident, initial encounter
CPT/HCPCS: 99283; 73030

== ENCOUNTER 2021-10-12 09:46 | Outpatient (CLI) | payer MEDICARE, BC, SELFPAY ==
--- NOTE | 2021-10-12 08:20 | DI.RAD_ITS ---
Exam(s) XR SHOULDER LT COMPLETE 2+V EXAM: XR SHOULDER LT COMPLETE 2+V CLINICAL HISTORY: Fx prox humerus. TECHNIQUE: 2D digital imaging was performed. COMPARISON: CR,XR XR SHOULDER LT COMPLETE 2+V from 09/30/2021 FINDINGS: Again noted is fracture of the humeral tqoo-jtsy-zvvzsyjn diaphysis, also involving the greater tuber osity. Fracture line still evident. No further displacement. It is somewhat difficult to accuratel y compare the fracture of the greater tuberosity because of differences in rotation. Nevertheless, f racture line is still evident. IMPRESSION: DATA REPOSITORY: RADIATION DOSE DELIVERED:
== END 2021-10-12 09:47 | disposition home or self-care (01) ==
LOC: DIORS 09:46
PROVIDERS: PCP Family Medicine; Referring Provider Family Medicine; Visit Provider Physician Assistant
DX: X58.XXXA Exposure to other specified factors, initial encounter; S42.202A Unspecified fracture of upper end of left humerus, initial encounter for closed fracture
CPT/HCPCS: 99214; 73030

== ENCOUNTER 2021-12-19 08:50 | Outpatient (CLI) | payer MEDICARE, BC, SELFPAY ==
--- NOTE | 2021-12-19 08:00 | DI.RAD_ITS ---
Exam(s) XR KNEE LT 1V XR STANDING ALIGNMENT EXAM: XR KNEE LT 1V CLINICAL HISTORY: TKA planning. TECHNIQUE: 2D digital imaging was performed. Standing AP views were performed from the pelvis throu gh the ankles. Lateral view left knee COMPARISON: CR XR STANDING ALIGNMENT from 12/19/2021 FINDINGS: BONES: No acute fracture is present. No bony destructive lesion is seen. JOINTS: Knees: Severe degenerative changes with prominent spurring at the patellofemoral joint. Femo ral tibial joint space is well maintained bilaterally. The ankle and hip joints are unremarkable. SOFT TISSUE: Normal. IMPRESSION: Advanced degenerative changes of the left patellofemoral joint. No significant leg length discrepanc y. DATA REPOSITORY: RADIATION DOSE DELIVERED:
--- NOTE | 2021-12-19 08:00 | DI.RAD_ITS ---
Exam(s) XR SHOULDER LT COMPLETE 2+V EXAM: XR SHOULDER LT COMPLETE 2+V CLINICAL HISTORY: L prox humerus fx. TECHNIQUE: 2D digital imaging was performed. Three views. COMPARISON: CR XR SHOULDER LT COMPLETE 2+V from 12/21/2020 CR,XR XR SHOULDER LT COMPLETE 2+V from 09/30/2021 CR XR SHOULDER LT COMPLETE 2+V from 10/12/2021 FINDINGS: BONES: Increased callus formation around the proximal humeral fracture. No change in alignment given differences in projection.. No bony destructive lesion is seen. JOINTS: No dislocation or subluxation present. SOFT TISSUE: Unremarkable. DATA REPOSITORY: RADIATION DOSE DELIVERED:
== END 2021-12-19 08:51 | disposition home or self-care (01) ==
LOC: DIORS 08:50
PROVIDERS: PCP Family Medicine; Referring Provider Family Medicine; Visit Provider Physician Assistant
DX: S42.202D Unspecified fracture of upper end of left humerus, subsequent encounter for fracture with routine healing (principal); M17.12 Unilateral primary osteoarthritis, left knee; X58.XXXD Exposure to other specified factors, subsequent encounter
CPT/HCPCS: 73030; 73560; 77073

== ENCOUNTER 2021-12-24 01:11 | Outpatient (CLI) | payer MEDICARE, BC, SELFPAY ==
[2021-12-24 11:20] LABS: Source Nasal/Nares
[2021-12-24 19:01] LABS: COVID-19 PCR Negative (Negative)
== END 2021-12-24 01:12 | disposition home or self-care (01) ==
LOC: LBO 01:12
PROVIDERS: PCP Family Medicine; Visit Provider Student in an Organized Health Care Education/Training Program
DX: Z20.822 Contact with and (suspected) exposure to COVID-19 (principal); Z01.818 Encounter for other preprocedural examination
CPT/HCPCS: 36415; 80053; 80061; 85027; 87635; U0005; 83036

== ENCOUNTER 2021-12-24 01:46 | Outpatient (CLI) | payer MEDICARE, BC, SELFPAY ==
[2021-12-24 10:53] LABS: HCT 40.9 % (36.0-46.0); HGB 13.9 g/dL (11.2-15.7); MCH 29.8 pg (27.0-33.0); MCV 88 fL (80-95); MPV 9.3 fL (8.0-11.0); Platelet Count 313 10^3/uL (130-400); RBC 4.66 10^6/uL (3.93-5.22); RDW 12.4 % (11.7-14.6); RDW-SD 39.5 fL; WBC 5.73 10^3/uL (4.4-10.8)
[2021-12-24 11:13] LABS: Hemoglobin A1C 5.8 % (<5.7)
[2021-12-24 12:13] LABS: ALT 32 U/L (14-59); AST 18 U/L (15-37); Alkaline Phosphatase 108 U/L (46-116); BUN 19 mg/dL (7-18); Bilirubin, Total 0.5 mg/dL (0.2-1.0); CREATININE 0.7 mg/dL (0.55-1.02); Calcium 8.6 mg/dL (8.5-10.1); Calculated LDL 180 mg/dL (<100); Chloride 106 mmol/L (98-107); Cholesterol 258 mg/dL (<200); Glucose 94 mg/dL (74-106); HDL Cholesterol 62 mg/dL (40-60); Sodium 143 mmol/L (136-145); Total Protein 6.9 g/dL (6.4-8.2); Triglyceride 84 mg/dL (<150)
== END 2021-12-24 01:47 | disposition home or self-care (01) ==
LOC: LBO 01:46
PROVIDERS: PCP Family Medicine; Visit Provider Student in an Organized Health Care Education/Training Program
DX: M25.562 Pain in left knee (principal); M17.12 Unilateral primary osteoarthritis, left knee; I10 Essential (primary) hypertension; E11.9 Type 2 diabetes mellitus without complications; Z01.818 Encounter for other preprocedural examination; Z01.812 Encounter for preprocedural laboratory examination
CPT/HCPCS: 36415; 80053; 80061; 85027; 83036

== ENCOUNTER 2021-12-25 06:59 | Day surgery (SDC) | payer MEDICARE, BC, SELFPAY ==
[2021-12-25] VITALS (8 sets, daily range): BP systolic 110–152; BP diastolic 62–89; PULSE 54–63; RESP 11–17; TEMP 35.9–36.8; O2SAT 95–98; BMI 26.1
[2021-12-25] MEDS: Acetaminophen 500 MG TAB 1000 MG PO (07:42)
[2021-12-25] MEDS: Celecoxib 200 MG CAP 400 MG PO (07:42)
[2021-12-25] MEDS: Gabapentin 300 MG CAP PO (07:42)
[2021-12-25] MEDS: Lactated Ringers 1,000 ML 80 ML IV (07:58)
--- NOTE | 2021-12-25 08:03 | W.ANESPRE ---
General Info Date of Service Date Performed: 12/25/21 Height: 5 ft 4 in Weight: 68.946 kg Body Mass Index (BMI): 26.1 Surgical Procedure: Operation Date: 12/25/21 09:40 Proposed Procedure Side Surgeon p Knee Total Arthroplasty Cementless CR Left Joey Esteban MD s Injection Knee Right Joey Esteban MD Meds Allergies and Home Medications Allergies Allergy/AdvReac Type Severity Reaction Status Date / Time No Known Allergies Allergy Verified 12/25/21 07:32 Home Medication Medication Instructions Recorded acetaminophen 500 mg tablet 500 mg PO Q6H PRN #90 tab 07/14/19 ibuprofen 600 mg tablet 600 mg PO TID PRN #90 tab 07/14/19 venlafaxine 75 mg tablet,extended 150 mg PO DAILY #180 tab 02/28/21 release 24 hr hydrochlorothiazide 25 mg tablet 25 mg PO DAILY #90 tab 07/30/21 Current Visit Medications: Current Medications Generic Name Dose Route Start Last Admin Trade Name Freq PRN Reason Stop Dose Admin Acetaminophen 1,000 mg 12/25/21 06:00 12/25/21 07:42 Acetaminophen 500 Mg Tab PO 1,000 mg PREOP AALIYAH Administration Acetaminophen 1,000 mg 12/25/21 08:30 Acetaminophen 500 Mg Tab PO TID AALIYAH Aspirin 81 mg 12/25/21 20:00 Aspirin E.C. 81 Mg Tabec PO BID AALIYAH Celecoxib 400 mg 12/25/21 06:00 12/25/21 07:42 Celecoxib 200 Mg Cap PO 400 mg PREOP AALIYAH Administration Celecoxib 200 mg 12/25/21 08:30 Celecoxib 200 Mg Cap PO BID AALIYAH Docusate Sodium 100 mg 12/25/21 07:29 Docusate Sodium 100 Mg Cap PO BID PRN PRN Constipation Gabapentin 300 mg 12/25/21 06:00 12/25/21 07:42 Gabapentin 300 Mg Cap PO 300 mg PREOP AALIYAH Administration Tranexamic Acid 1,000 mg/ 60 mls @ 360 mls/hr 12/25/21 06:00 Sodium Chloride IVPB 12/25/21 18:00 PREOP AALIYAH Tranexamic Acid 1,000 mg/ 60 mls @ 360 mls/hr 12/25/21 06:00 Sodium Chloride IVPB 12/25/21 18:00 DIRECTED AALIYAH Ringer's Solution 1,000 mls @ 80 mls/hr 12/25/21 06:00 12/25/21 07:58 IV 01/23/22 23:59 80 mls/hr INFUSION AALIYAH Administration Cefazolin Sodium/Dextrose 2 gm in 50 mls @ 100 mls/hr 12/25/21 06:00 Ancef Duplex IVPB 01/23/22 23:59 PREOP AALIYAH Cefazolin Sodium/Dextrose 1 gm in 50 mls @ 100 mls/hr 12/25/21 08:00 Ancef Duplex IVPB 12/26/21 00:29 Q8H AALIYAH IV Miscellaneous Supplies 1 each 12/25/21 06:00 Iv Access IV 01/23/22 23:59 DIRECTED AALIYAH Ondansetron HCl 4 mg 12/25/21 07:29 Ondansetron 4 Mg/2 Ml Vial IVP Q6H PRN PRN Nausea Oxycodone HCl 0 mg 12/25/21 07:29 Oxycodone 5 Mg Tab PO Q3H PRN PRN Pain Pantoprazole Sodium 40 mg 12/25/21 07:30 Pantoprazole 40 Mg Tabcr PO DAILY@0730 AALIYAH Polyethylene Glycol 17 gm 12/25/21 07:29 Polyethylene Glycol 3350 17 Gm Packet PO BID PRN PRN Constipation Sodium Chloride 0 ml 12/25/21 06:00 Normal Saline Flush 10 Ml Syr IV 01/23/22 23:59 PRN PRN Sodium Chloride 0 ml 12/25/21 06:00 Normal Saline 10 Ml Vial IJ 01/23/22 23:59 DIRECTED PRN Sterile Water 0 ml 12/25/21 06:00 Water,Injection,Sterile 10 Ml Vial IJ 01/23/22 23:59 DIRECTED PRN PFSH Active Problems Active Problems: Problem Status Onset Code Closed fracture of left proximal humerus 09/30/21 S42.202A Impacted cerumen, bilateral H61.23 Pelvic pain in female R10.2 Rotator cuff tear, left M75.102 Tendinitis of left rotator cuff M75.82 Tendinitis of long head of biceps brachii of left shoulder M75.22 Acute shoulder pain due to trauma M25.519, G89.11 Family history of colon cancer Z80.0 Osteoarthritis of right knee M17.11 Rectal polyp K62.1 Acute right hip pain 03/03/18 M25.551 Low back pain M54.5 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 H60.8X3 Fibroma D21.9 Colonoscopy planned Family history of colon cancer Z80.0 Sensorineural hearing loss of both ears H90.3 Status post arthroscopy of right shoulder 07/14/19 Z98.890 Osteoarthritis of left knee M17.12 Psoriasis L40.9 Osteopenia 03/03/18 M85.80 Essential hypertension 03/03/18 I10 Depression F32.9 Degeneration of lumbar intervertebral disc M51.36 Cervical spondylosis M47.812 Cervical radiculopathy M54.12 Acute right-sided low back pain with right-sided sciatica 03/03/18 M54.41 Medical History Medical History Syncope Travel within last 14 days Surgical History Surgical History H/O medial meniscus repair of left knee History of colonoscopy History of foreign body in eye left, s/p excision History of laparoscopic cholecystectomy Hx of rotator cuff surgery left shoulder Tobacco Smoking/Tobacco Use Status: Never Passive smoking exposure: Yes Alcohol Alcohol Intake: current Alcohol intake frequency: holidays/special occasions only Alcohol type: wine Substance Use Substance use: Never Substance use type: does not use Vital Signs and Lab Results Vital Signs Most Recent Vital Signs in EMR: Most Recent Vital Signs Temp Pulse Resp BP Pulse Ox 36.5 C 63 15 131/85 97 12/25/21 07:08 12/25/21 07:08 12/25/21 07:08 12/25/21 07:08 12/25/21 07:08 Lab Results Blood Type / Crossmatch: No Data to Display Complete Blood Count: White Blood Count 5.73 10^3/uL (4.4-10.8) 12/24/21 10:47 12/24/21 Red Blood Count 4.66 10^6/uL (3.93-5.22) 12/24/21 10:47 12/24/21 Hemoglobin 13.9 g/dL (11.2-15.7) 12/24/21 10:47 12/24/21 Hematocrit 40.9 % (36.0-46.0) 12/24/21 10:47 12/24/21 Platelet Count 313 10^3/uL (130-400) 12/24/21 10:47 12/24/21 Complete Metabolic Panel: Sodium Level 143 mmol/L (136-145) 12/24/21 10:47 12/24/21 Potassium Level 4.0 mmol/L (3.5-5.1) 12/24/21 10:47 12/24/21 Chloride Level 106 mmol/L (98-107) 12/24/21 10:47 12/24/21 Carbon Dioxide Level 27.0 mmol/L (21.0-32.0) 12/24/21 10:47 12/24/21 Blood Urea Nitrogen 19 mg/dL (7-18) H 12/24/21 10:47 12/24/21 Creatinine 0.7 mg/dL (0.55-1.02) 12/24/21 10:47 12/24/21 Estimated GFR/1.73 m2 >= 60.00 (mL/min/1.73m2) 12/24/21 10:47 12/24/21 Calcium Level 8.6 mg/dL (8.5-10.1) 12/24/21 10:47 12/24/21 Albumin 4.0 g/dL (3.4-5.0) 12/24/21 10:47 12/24/21 Glucose Level 94 mg/dL (74-106) 12/24/21 10:47 12/24/21 Hemoglobin A1c 5.8 % (<5.7) H 12/24/21 10:47 12/24/21 Liver Function Panel: Alanine Aminotransferase (ALT/SGPT) 32 U/L (14-59) 12/24/21 10:47 12/24/21 Aspartate Amino Transf (AST/SGOT) 18 U/L (15-37) 12/24/21 10:47 12/24/21 Coagulation Panel: No Data to Display Cardiac Panel: No Data to Display Arterial Blood Gas: No Data to Display Venous Blood Gas: No Data to Display Pancreas Panel: No Data to Display Thyroid Panel: No Data to Display Infectious Disease: Coronavirus (COVID-19)(PCR) Negative (Negative) 12/24/21 10:53 12/24/21 Coronavirus 2019 Source Nasal/Nares 12/24/21 10:53 12/24/21 Blood Cultures: No Data to Display Toxicology Panel: No Data to Display Anesthesia Assessment and Plan Anesthesia History Personal History: No History of Anesthesia Complications Family History: No Family History of Anesthesia Complications Exercise Tolerance Exercise Tolerance: Metabolic Equivalents>4 Pertinent Negatives Pertinent Negatives: No Symptoms of GERD, No Major Cardiovascular Symptoms or Complaints and No Major Pulmonary Symptoms or Complaints Cardiac & Pulmonary Exam Cardiac Exam: Normal S1/S2 Heart Sounds Pulmonary Exam: Clear Bilateral Breath Sounds Implantable Cardiac Device Does patient have a Pacemaker or an ICD?: No Airway Exam Known Difficult Airway: No Mallampati Class: 1 Mouth Opening: Normal (> 3cm) Thyromental Distance: Greater than 3 cm Neck Range of Motion: Full ROM Neck Circumference: Normal Teeth Condition: Normal Dentition ASA Classification ASA Score: ASA 2 Emergency Case?: No NPO Status NPO Status: NPO Clears >2 hours, Solids >8 hours Anesthesia Plan Resuscitation Status: Full Code Anesthesia Technique: Spinal Anesthesia Airway Planned: Natural Airway Pain Management: Surgeon and patient request nerve block Monitors Used: Standard Monitors
[2021-12-25] MEDS: ceFAZolin 2 GM/50 ML BAG IVPB (08:53)
[2021-12-25] MEDS: Bupivacaine 0.5% Pres-Free 30 ML VIAL (09:25)
--- NOTE | 2021-12-25 09:25 | W.ANESNERVE ---
Nerve Block Single Injection Procedure Date and Time Date Performed: 12/25/21 Procedure Start: 08:25 Location Where Procedure Performed Procedure Location: Day Surgery Unit Reason Performed: Postoperative Analgesia Requesting Provider: Joey Esteban Timeout Performed Timeout Performed: Yes Monitoring Used ECG, Blood Pressure, SpO2 and See EMR for corresponding vital signs Sterility Sterility: Hand Hygiene, Surgical Cap, Surgical Mask, Sterile Gloves and Chlorhexidine Sedation Given During Procedure Sedation Given (Indicate Dose Given): No Sedation given Patient Mental Status Patient Mental Status: Awake Nerve Block 1st Nerve Block: Laterality: Left Block Type: Adductor Canal Needle / Catheter Used: 100mm SonoPlex II Local Anesthetic Bolus (Indicate Dose Given): Lidocaine used for local infiltration of skin, Injected in 3-5ml increments after negative blood aspiration and Bupivacaine 0.25% Dose:: 20ml Additives (Indicate Dose Given): None Ultrasound: Sterile probe cover and gel used Ultrasound Image Saved?: Yes Nerve Stimulator: Not Used Paresthesia: None Procedure Tolerated: No Complications and Patient tolerated well Procedure Outcome: Successful Performed By: Casey Garcia
[2021-12-25] MEDS: methylPREDNISolone ACETATE 80 MG/ML VIAL (09:26)
--- NOTE | 2021-12-25 11:19 | W.ANESPOSTOP ---
Postoperative Evaluation Date, Time and Location Date Performed: 12/25/21 Time Performed: 11:19 Patient Location: Day Surgery Unit Vital Signs Most Recent Imported Vital Signs: Most Recent Vital Signs Temp Pulse Resp BP Pulse Ox 36.3 C L 57 L 17 128/67 96 12/25/21 11:05 12/25/21 11:05 12/25/21 11:05 12/25/21 11:05 12/25/21 11:05 Pain Score Most Recent Pain Score: Most Recent Pain Score Pain Level [Left Knee Joint] 8 12/25/21 07:08 Pain Level 0 12/25/21 11:05 Assessment Mental Status: Awake (Alert & Oriented to Patient Baseline) Airway and Respiratory Function: Patent airway with normal (patient baseline) respiratory exam Cardiovascular Function: Hemodynamically Stable Hydration Status: Adequately Hydrated Nausea & Vomiting: No Nausea or Vomiting Pain: Pt. Denies Any Pain Peripheral Nerve Block: Regional nerve block not resolved at time of post operative discharge
--- NOTE | 2021-12-25 12:11 | W.PM.DSUDISC ---
Discharge Plan Disposition Patient Disposition: HOME Condition: Good Discharge Details Reason For Visit: Left knee DJD Attending Provider: Joey Esteban Primary Care Provider: Lorraine Garcia Home Meds and New Rx's Prescriptions: New celecoxib 200 mg capsule 200 mg PO BID PRN (Reason: pain) Qty: 60 1RF aspirin 81 mg tablet,delayed release (DR/EC) 81 mg PO BID Qty: 60 0RF acetaminophen 500 mg tablet 1,000 mg PO Q8H PRN (Reason: pain) Qty: 90 3RF pantoprazole 40 mg tablet,delayed release (DR/EC) 40 mg PO DAILY Qty: 30 0RF docusate sodium [Colace] 100 mg capsule 100 mg PO BID PRNQty: 10 0RF gabapentin 300 mg capsule 300 mg PO QHS Qty: 14 0RF oxycodone 5 mg tablet 5 mg PO Q4H Qty: 18 0RF Continued venlafaxine 75 mg tablet extended release 24hr 150 mg PO DAILY Qty: 180 3RF hydrochlorothiazide 25 mg tablet 25 mg PO DAILY Qty: 90 4RF Discontinued acetaminophen 500 mg tablet 500 mg PO Q6H PRN (Reason: pain) Qty: 90 3RF ibuprofen 600 mg tablet 600 mg PO TID PRNQty: 90 3RF Discharge Instructions Additional Instructions: Total Knee Discharge Instructions Activity: The most important activity is to walk. You should try to take short walks a few times a day. It is important that when resting you work on keeping the knee straight. Avoid putting a pillow behind the knee as this will encourage flexion. Work on range of motion exercises as provided by Physical Therapy. If you have the [employer] bike coming, this will be your primary tool for exercise after the knee replacement. You should use it and follow the directions for the knee. Utilize the other exercises sparingly based on your symptoms. - Start outpatient physical therapy within 2 weeks. - You should wear the IFEANYI hose on both legs for 2 weeks. You may remove these at night. You may also use any compression sock in place of the IFEANYI hose. - Utilize [employer] to review exercises, see videos on exercises and obtain basic information pertaining to your surgery and your recovery. Dressing: Remove the Price wrap by 2 days after your surgery and put on the IFEANYI stocking given to you from the hospital. Keep the surgical dressing (underneath the PRICE wrap) in place for at least one week. After the first week it may be removed and replaced with light gauze and tape or nothing. The wound and dressing may get wet after 3 days but avoid soaking the dressing or otherwise it will need to be changed. Many people prefer covering the dressing with cling wrap (saran wrap) to minimize it from getting soaked. If it gets wet, just pat dry. If it starts to peel off then it will need to be changed. Medications: - You should take Tylenol and anti-inflammatory Celebrex as your primary pain control medications. If the Celebrex is too expensive or not covered, please call the office for another alternative (Advil/Ibuprofen or Naproxen/Aleve) - You have been prescribed a stronger pain medication Oxycodone for breakthrough pain, take as needed as prescribed. - You have also been prescribed a stomach acid reduction agent Pantoprozole to help reduce stomach acid and reflux. - You have been prescribed Gabapentin to take at night for restlessness and nerve pain. - You will be taking Aspirin 81mg twice a day for DVT prevention unless instructed otherwise. - If you have constipation you should take Colace or Miralax (both [id number]). It takes most people 3-4 days to have a bowel movement. Follow-up: 2 weeks If you have any acute concerns or questions, please do not hesitate to contact the office at [phone]. You may contact Dr. Esteban with any questions after hours through the hospital at [phone] or on his cell phone at [phone]. Referrals: Joey Esteban MD [ [facility] STAFF PHYSICIAN] - Equipment/Supplies: Walker Activity:: Elevate Shower/Bathe:: Cover Diet:: As Tolerated Discharge Orders Discharge Orders: Discharge Order (Routine); Ordered 12/25/21 Ordered By: Joey Esteban
--- NOTE | 2021-12-25 13:44 | PT.INIE ---
Date of service: 12/25/21 Time of Service: 13:45 PT Notes Visit Reasons: Left knee DJD Physical Therapy Day Surgery Initial Evaluation Date: 12/25/2021 Referring Doctor: CINDY Carrasquillo PT Orders: PT CONSULT: Eval/treat Precautions: WBAT on L LE with AD. Patient Profile/Admitting Diagnosis: Trena is a 71-year-old female with degenerative joint disease of the L and R knees is S/P L total knee arthroplasty on postoperative day 0. She is also S/P closed fracture of proximal humerus on 09/30/2021 due to a fall. PMHX: Medical History Syncope Travel within last 14 days Surgical History? H/O medial meniscus repair of left knee History of colonoscopy History of foreign body in eye left, s/p excisionHistory of laparoscopic cholecystectomy Hx of rotator cuff surgery left shoulder Social History/Home Situation: Equipment Owned/DME: Lives with in a private home with 2-3 steps to enter without rails. Independent with all aspects of ADLs prior to surgery. Subjective: Agreeable to PT consult. States that she can hold onto his while she manages the entrance steps of her house. Reports -10/2009 pain in the left knee at rest and with movement. Denies headache, chest pain, and dizziness throughout session. Feels that she did much better than she anticipated. Objective: General Observation: Price wraps to left LE. Cryocuff to left knee. TEDS on right leg. Mental Status: Alert and oriented x4 Pain: -10/2009 in the left knee. ROM: Right Lower Extremity: Hip flexion WFL. Hip abduction WFL. Knee flexion WFL. Ankle dorsiflexion WFL. Ankle plantarflexion WFL. Left Lower Extremity: Hip flexion WFL. Hip abduction WFL. Knee flexion -45 degrees to 90 degrees. Knee extension -45 degrees. Ankle dorsiflexion WFL. Ankle plantarflexion WFL. Strength: Right Lower Extremity: Hip flexors 5/5. Hip abductors 5/5. Knee flexors 5/5. Knee extensors 5/5. Ankle dorsiflexors 5/5. Ankle plantarflexors 5/5. Left Lower Extremity: Hip flexors 5/5. Hip abductors 5/5. Knee flexors 3-/5. Knee extensors 3-/5. Ankle dorsiflexors 5/5. Ankle plantarflexors 5/5. Sensation: Intact rest pain and light pressure in bilateral lower extremities Bed Mobility/Transfers: Supine to sit standby assist Sit to stand contact-guard assist Stand to sit standby assist Bed to chair standby assist Gait: Instructed patient with level surface ambulation of 150 feet using front-wheeled walker with step to gait pattern requiring standby assist with report of pain in the left knee at . Mild antalgic gait noted. Balance: Static Sitting: Normal Dynamic Sitting: Normal Static Standing: Fair Dynamic Standing: Fair Special Tests: Mobility Limitations Standardized Measure [facility] AM-PAC 6 clicks Basic Mobility Inpatient Short Form: Raw Score: 21 CMS Score: 29% deficit Informed Consent Education: Patient instructed in purpose of PT consult. Education and training on initial set of exercises that can be done at home have been completed with patient using the [employer] arelis on patient's phone. Assessment: Trena requires the use of a front-wheeled walker for all mobility performance to maximize independence and reduce fall risk at home. She presents with clinical signs and symptoms consistent with current/admitting diagnoses that have resulted to mobility limitations, gait instability, generalized weakness, and impairment of motor control as demonstrated by the following impairment level findings: 1. Decreased strength to left knee major muscle groups 2. Impaired standing balance 3. Limitation of joint range of motion in left knee Impairments are contributing to the following functional limitations: 1. Inability to safely ambulate without assistive device 2. Increase completion time for mobility ADL performance 3. Increased fall risk Patient is assessed as a 12883 moderate complexity based on the following: History: 71-year-old female impairment level findings, functional limitations, and past medical history as indicated above Examination: Demonstrable impairment in strength, balance, and mobility level with underlying impairments and functional limitations as documented above Presentation: [employer] moderate complexity Goals: N/A. PT evaluation and 1-2 treatment sessions only for functional mobility training using recommended AD and for HEP instruction. Plan of Care/Treatment Plan: N/A. PT evaluation and 1-2 treatment session only for functional mobility training using recommended AD and for HEP instruction. DISCHARGE RECOMMENDATIONS: [] Home with no services [] [] Home with services [specify] [X] Home with outpatient PT. Home when medically cleared by orthopedic surgeon. Will benefit from outpatient PT services in order to facilitate return to independent community ambulation without an assistive device. [] SNF for continued rehabilitation [] [] [employer] [facility] [] [] SNF versus LTC based on ability to participate and progress [] TREATMENT CODE/TIME: 01614 x 20 minutes, 26709 x 29 minutes 13:44 PM. Thank you for the opportunity to participate in the care of this patient. Yokasta Anguiano PT, DPT, CLT [facility] [place], [place]
[2021-12-25] MEDS: oxyCODONE 5 MG TAB PO (14:45)
--- NOTE | 2021-12-25 19:38 | ROE_ITS ---
Date of service: 12/25/21 Time of Service: 10:30 Operative Note Operative Note DATE OF PROCEDURE: 12/25/21 PRE-OP DIAGNOSIS: Bilateral Knee Osteoarthritis POST-OP DIAGNOSIS: same PROCEDURE: Left Total Knee Replacement, Right Knee Injection SURGEON: Joey Esteban EARLY CHILDHOOD AIDE CLASSROOM: Josue Kaba ANESTHESIA TYPE: Spinal Refer to Anesthesia Record ESTIMATED BLOOD LOSS: 100 PATHOLOGY: none sent TOURNIQUET TIME: 0 COMPLICATIONS: None Patient was transported to: PACU Patient's condition: stable Implants: 1. Depuy Attune Cementless Cruciate Retaining Femoral Component, Size 5 2. Depuy Attune Cementless Rotating Platform Tibial Component, Size 4 3. Depuy Attune 5x7mm CR/RP Poly 4. Depuy Attune Patellar Component, Size 35 Indications: I have seen Trena in clinic for symptoms of knee arthritis, confirmed with radiographic findings. She has exhausted nonoperative methods and was having significant limitations in daily function and desired better function and less pain. I discussed the technical details of a knee replacement. I explained the risks of the procedure to include, but not limited to, bleeding, infection, pain, stiffness, fracture, damage to nerves and vessels, damage to muscles and tendons, loosening, need for repeat procedure, blood clot and cardiopulmonary demise. Despite these risks, Trena elected to proceed. Findings: There was significant signs of arthritis throughout the knee, focused medially. Procedure Description: Trena was greeted in the preoperative holding area where the correct side was identified and marked. The consent was reviewed with the patient and signed. The history and physical was updated. All questions were answered. Preoperative medications were administered: Acetaminophen 1000mg, Celebrex 400mg , and Gabapentin 300mg. An adductor canal block was then administered by the anesthesia team in the PACU. Trena was taken back to the operating room. A spinal anesthestic was then administered. The patient was placed into the supine position on the operating room table. Posts were placed for positioning during the procedure. All bony prominences were well padded. Prophylactic antibiotics in the form of Cefazolin were administered. 1g of Tranxemic Acid was given intravenously within 30 minutes of incision. The right knee was addressed first with the injection. A superolateral approach was utilized after prepping the skin with Chloraprep. The knee was then injected with 5cc of 0.25% Bupivacaine and 80mg of Depo-Medrol. Then, the left leg was then prepped with Chloraprep and draped in a standard fashion with impervious stockinette. A second prep with Chloraprep was performed prior to application of Iodine impregnated skin protection. A timeout to confirm correct identity, side and site, procedure, allergies, anesthesia, and medical concerns was performed. With the knee in some flexion, a midline incision was made overlying the knee. Full thickness skin flaps were raised once the extensor mechanism was encountered. These were raised medially and laterally. Any bleeding was controlled with electrocautery. Once the extensor mechanism was fully exposed, a medial parapatellar arthrotomy was performed in a flexed position. All bleeding from the arthrotomy and the geniculate arteries was coagulated. A medial subperiosteal peel was performed with electrocautery to the midcoronal plane. The fat pad was removed while keeping the patellar tendon protected. The anterior distal femur synovium was removed for later visualization. The ACL and PCL were resected and the anterior horn of the lateral meniscus was transected. The knee was then flexed with the patella everted. Large osteophytes from the tibia were removed. Large osteophytes from the femur were removed. Using a step drill, and based on preoperative templating, the femoral canal was entered. This was done with a step drill without any difficulty. The intramedullary distal femoral cut guide was inserted, set to a 5 degree valgus cut and 9mm cut thickness. The distal femoral cut guide was then held in position and pinned. With the soft tissues protected, the distal cut was performed. This was passed over a few times to ensure a planar cut. I then turned attention to the tibia. The extramedullary guide was placed onto the leg. The distal aspect was slid medial to adjust for position of center of ankle and stay in line with shaft of the tibia. Approximately 3-5 degrees of posterior slope was kept in the proximal cutting guide. The center of the guide was aligned with the PCL. The stylus was used to assess cut thickness. The medial side, most involved side, was set for a 4mm cut. This was then held in position and pinned into place with 2 additional pins and a cross pin for stability. The medial and lateral collateral ligaments were protected and the cut was performed. With this completed, it was assessed and noted to be of appropriate dimensions. The guide was removed. A spacer block was inserted and the knee was brought into extension. The 7mm spacer block provided full extension, without hyperextension and with stability of both the medial and lateral collateral ligaments was assessed. The pins from the femur and the tibia were then removed. The distal femur was then sized. The anterior stylus was placed onto the lateral ridge of the anterior femur. This indicated a size 5 femur. The external rotation of the guide was adjusted to 3 degrees to match the epicondylar axis, perpendicular to Raymond?s line. The 4-in-1 cutting guide was the placed. The posterior medial femur cut was evaluated and appeared of good thickness. The spacer block was inserted underneath the cutting guide and stability was confirmed in 90 degrees of flexion. An susan wing was used to confirm appropriate position of the anterior cut to avoid notching. This cutting guide was ensured to be flush on the cut surface and then pinned into place with headed pins. While protecting the soft tissues, quad tendon, and collateral ligaments, the anterior and posterior cuts were performed with a saw. The central two pins were removed and the posterior and anterior chamfers were cut next. The notch-cutting guide was placed. This was pinned to lateralize the femoral component as much as possible while keeping it flush on the cut surface. This was then pinned into position. A reciprocating saw was used to make the notch cut. A rasp smoothed the cut surfaces. The medial and lateral menisci were removed. A trial femoral component was then inserted, impacted down to the cut surfaces, and the lug holes were drilled. A provisional trial tibial component was placed and the knee was brought through range of motion. There was noted to be excellent extension and flexion. There was no significant instability. The patella was tracking without thumbs. A size 7mm polyethylene component provided the best range of motion and stability with less than 2mm gapping with medial and lateral stress and full extension without significant hyperextension. The tibial cut surface was fully exposed. The tibia was then sized as a 4. The tibia had been previously marked during trialing to correspond to the center of the tibial component to help with rotation. The trial was aligned to this josue, approximately rotated to the medial 1/3rd of the tibial tubercle. The trial was pinned into place. The tibia was prepared with a reamer and a keel punch and lug holes. The knee was then brought into extension and the patella was measured as 24mm. Using the patellar clamp and cut guide, this was resected to a flat surface with at least 13mm of thickness remaining. The size 35 patella fit the best. This was oriented and then clamped into position. The lugs were drilled. The trial components were removed. The final components were opened on the back table. The periosteal and capsular tissues, especially posteriorly, around the knee were then systematically injected with a periarticular cocktail consisting of 246mg of Ropivacaine, 0.5mg of Epinephrine, 0.08mg of Clonidine, and 30mg of Ketorolac, diluted to 100cc. On the back table, with the implants opened, the cement was mixed. One batch of high viscosity cement was prepared with vacuum assistance. After the cement was ready a small amount was placed on the cut surface of the patella and the patellar button was clamped into position and held. While the cement was hardening, the cementless knee components were placed. Starting with the tibial component, the tibia was subluxed anteriorly and the lug holes of the component were lined up. The tibia was then impacted with an impactor and mallet until the tibial component was in contact with the tibia. The final polyethylene component was inserted. Then, the femoral component was inserted. The lug holes were aligned and the component was impacted into position. The knee was irrigated with Surgiphor Betadine solution. This was allowed to sit in the knee for 3 minutes and then it was irrigated out with saline. After the cement had finally cured, approximately 15min, the clamp was removed from the patella and the knee was taken through range of motion. The patella was tracking with a no-thumbs technique. The capsule was then reapproximated with a No. 1 Vicryl at multiple locations. The capsule was finally closed with a No. 2 Stratafix, barbed suture. The second dosing of 1g TXA was started. Deep tissues were then reapproximated with 0 Vicryl and 2-0 Vicryl. The skin was closed with a running 3-0 Monocryl in a subcuticular fashion. This was reinforced with skin glue. A Mepilex silver dressing was applied along with a [id number] DONNA wrap. A CryoCuff was applied. Trena was transferred to the hospital bed without difficulty an suffering no apparent complication. Trena has a good prognosis. Physical therapy will start today and without restrictions, weight-bearing as tolerated. Aspirin 81mg BID will be used for DVT prophylaxis.
== END 2021-12-25 15:27 | disposition home or self-care (01) ==
PROVIDERS: PCP Family Medicine; Visit Provider Student in an Organized Health Care Education/Training Program
PROC: (CPT 27447; principal; 2021-12-25 09:30)
PROC: (CPT 20610; 2021-12-25 09:30)
DX: M17.0 Bilateral primary osteoarthritis of knee (principal); I10 Essential (primary) hypertension; F32.A Depression, unspecified
CPT/HCPCS: 20610; 27447; C1776; 76942; 97166; 97530; J0690; J1040; J1100; J2250; J2405

== ENCOUNTER 2022-01-07 10:56 | Outpatient (CLI) | payer MEDICARE, BC, SELFPAY ==
--- NOTE | 2022-01-07 10:15 | DI.RAD_ITS ---
Exam(s) XR KNEE LT 1V XR STANDING ALIGNMENT EXAM: XR STANDING ALIGNMENT CLINICAL HISTORY: 1ST POST OP L TKA. TECHNIQUE: 2D digital imaging was performed. Standing AP views were performed from the pelvis throu gh the ankles. COMPARISON: CR XR STANDING ALIGNMENT from 12/19/2021 CR XR KNEE LT 1V from 01/07/2022 FINDINGS: BONES: No acute fracture is present. No bony destructive lesion is seen. The right femoral head pro jects a few millimeters superior to the left. JOINTS: Knees: A left total knee prosthesis is now seen. There are mild degenerative changes of the right knee. The ankle and hip joints are unremarkable. SOFT TISSUE: Normal. IMPRESSION: Status post left knee prosthesis. Mild leg length discrepancy. DATA REPOSITORY: RADIATION DOSE DELIVERED:
== END 2022-01-07 10:57 | disposition home or self-care (01) ==
LOC: DIORS 10:56
PROVIDERS: PCP Family Medicine; Referring Provider Family Medicine; Visit Provider Physician Assistant
DX: Z96.652 Presence of left artificial knee joint (principal)
CPT/HCPCS: 73560; 77073

== ENCOUNTER → 2022-02-04 08:00 | Outpatient (BNVA) | payer MEDICARE, BC, SELFPAY | PROVIDERS: PCP Family Medicine; Referring Provider Family Medicine; Visit Provider Student in an Organized Health Care Education/Training Program | DX: Z47.1 Aftercare following joint replacement surgery (principal); Z96.652 Presence of left artificial knee joint ==

== ENCOUNTER → 2022-03-18 08:51 | Outpatient (BNVA) | payer MEDICARE, BC, SELFPAY | PROVIDERS: PCP Family Medicine; Referring Provider Family Medicine; Visit Provider Student in an Organized Health Care Education/Training Program | DX: Z47.1 Aftercare following joint replacement surgery (principal); Z96.652 Presence of left artificial knee joint ==

== ENCOUNTER 2022-12-20 00:04 | Outpatient (CLI) | payer MEDICARE, BC, SELFPAY ==
--- NOTE | 2022-12-20 08:00 | DI.MRI_ITS ---
Exam(s) MR IAC BRAIN WO/W EXAM: MR IAC BRAIN WO/W CLINICAL HISTORY: L>R SNHL,IMPAIRMENT OF SPEECH,H90.3,H93.299 TECHNIQUE: Multiplanar multisequence MRI of the brain was performed. Both noninfused and contrast i nfused sequences were performed. IV Contrast injected was 13 cc Dotarem. COMPARISON: No exams were available for comparison FINDINGS: INTERNAL AUDITORY CANALS: Given the history here, there are no masses in the cerebellopontine angles. Also no evidence of intra canalicular acoustic neuroma-schwannoma. The sub millimeter slice thickn ess sequences reveal normal-appearing 7th and 8th cranial nerves within the internal auditory canals bilaterally. CEREBRAL PARENCHYMA: No evidence of intracranial hemorrhage, mass effect nor shift of midline structu re. No extraaxial fluid collections. Ventricles are not enlarged nor shifted. There is no significant focal signal abnormality in the cerebellar hemispheres nor within the félix, m idbrain, and thalami. There is no abnormal signal abnormality in the periventricular white matter. DWI: No areas of restricted diffusion to suggest acute ischemic event. SWI: No microhemorrhages evident. There are no ring enhancing lesions in the brain. There is no abnormal meningeal enhancement. PITUITARY GLAND: No mass nor parasellar abnormality. No obvious abnormality in the cavernous sinuses. FLOW VOIDS: The expected flow void are noted. No evidence of obvious aneurysm nor obvious vascular ma lformation. PARANASAL SINUSES: The visualized paranasal sinuses appear unremarkable. ORBITS: No obvious abnormal findings. IMPRESSION: 1. No significant intracranial findings on this MRI scan of the brain. 2. No abnormal enhancing intracranial findings. There are no ring enhancing lesions in the brain and there is no abnormal meningeal enhancement. 3. No evidence of acoustic neuroma-schwannoma. DATA REPOSITORY:
[2022-12-20 13:19] LABS: ALT 30 U/L (14-59); AST 14 U/L (15-37); Albumin 4.1 g/dL (3.4-5.0); Alkaline Phosphatase 103 U/L (46-116); Anion Gap 6.3 mmol/L (3-11); BUN 21 mg/dL (7-18); Bilirubin, Total 0.8 mg/dL (0.2-1.0); CO2 27.7 mmol/L (21.0-32.0); CREATININE 0.9 mg/dL (0.55-1.02); Calcium 8.9 mg/dL (8.5-10.1); Chloride 102 mmol/L (98-107); Estimated GFR 67.92 (mL/min/1.73m2); Glucose 104 mg/dL (74-106); Potassium 4.1 mmol/L (3.5-5.1); Sodium 136 mmol/L (136-145); Total Protein 7.5 g/dL (6.4-8.2)
[2022-12-20] MEDS: Normal Saline Flush 10 ML SYR IVP (13:37)
[2022-12-20] MEDS: Gadoterate meglumine 20 ML SYRINGE 13 ML IVP (13:46)
== END 2022-12-20 00:24 ==
LOC: DI 00:04
PROVIDERS: PCP Family Medicine; Visit Provider Otolaryngology
DX: I10 Essential (primary) hypertension (principal); H90.3 Sensorineural hearing loss, bilateral; H93.299 Other abnormal auditory perceptions, unspecified ear
CPT/HCPCS: 70553; 80053

== ENCOUNTER 2023-01-27 14:36 | Outpatient (CLI) | payer MEDICARE, BC, SELFPAY ==
--- NOTE | 2023-01-27 14:37 | DI.RAD_ITS ---
Exam(s) XR KNEE LT 2V AP,LAT EXAM: XR KNEE LT 2V AP,LAT CLINICAL HISTORY: ANNUAL F/U L TKA. TECHNIQUE: 2D digital imaging was performed. COMPARISON: CR XR KNEE LT 1V from 01/07/2022 FINDINGS: Two views Stable position alignment of the components of the prosthesis. No fractures nor loosening evident. IMPRESSION: Satisfactory appearance. DATA REPOSITORY: RADIATION DOSE DELIVERED:
== END 2023-01-27 14:37 | disposition home or self-care (01) ==
LOC: DIORS 14:37
PROVIDERS: PCP Family Medicine; Referring Provider Family Medicine; Visit Provider Student in an Organized Health Care Education/Training Program
DX: Z96.652 Presence of left artificial knee joint (principal); Z47.1 Aftercare following joint replacement surgery; M17.11 Unilateral primary osteoarthritis, right knee
CPT/HCPCS: 20610; 73560; J1040

== ENCOUNTER → 2023-05-05 01:52 | Outpatient (CLI) | payer MEDICARE, BC, SELFPAY ==
--- NOTE | 2023-05-05 09:30 | DI.MAMMO_ITS ---
Exam(s) MAMMO SCREENING EXAM: MAMMO SCREENING CLINICAL HISTORY: [id number] TECHNIQUE: Mammograms were interpreted according to the usual protocol including computer analysis w [employer] CAD system, tomosynthesis and C-view imaging. COMPARISON: 2014 through 2019 FINDINGS: The breasts are composed of scattered fibroglandular densities, Breast Density category B. No suspicious masses or suspicious microcalcifications are seen. No skin thickening or abnormal axillary lymph nodes are seen. There has been no significant change from prior exams. IMPRESSION: BI-RADS Category 1, Negative mammogram Yearly screening mammography is recommended. Breast Density - Category B, scattered fibroglandular densities. A negative radiographic report should not delay biopsy if a dominant or clinically suspicious mass is present. Up to ten percent of cancers are not identified on mammography. A negative report may reinforce clinical impression. Adenosis and dense breasts may obscure an underlying neoplasm. False positive reports average 6 to 10%. Patient will receive a letter notifying them of these results.
== END ==
PROVIDERS: PCP Family Medicine; Visit Provider Family Medicine
DX: Z12.31 Encounter for screening mammogram for malignant neoplasm of breast (principal)
CPT/HCPCS: 77063; 77067

== ENCOUNTER → 2023-06-09 10:23 | Outpatient (BNVA) | payer MEDICARE, BC, SELFPAY | PROVIDERS: PCP Family Medicine; Referring Provider Family Medicine; Visit Provider Student in an Organized Health Care Education/Training Program | DX: M17.11 Unilateral primary osteoarthritis, right knee (principal) | CPT/HCPCS: 20610; J1040 ==

== ENCOUNTER 2023-08-16 11:07 | Outpatient (REF) | payer MEDICARE, BC, SELFPAY | END 2023-08-16 11:08 | disposition home or self-care (01) | LOC: NCHCN 11:07 | PROVIDERS: PCP Family Medicine; Visit Provider Nurse Practitioner Family | DX: R30.0 Dysuria (principal) | CPT/HCPCS: 87077; 87086; 87186 ==

== ENCOUNTER → 2023-09-29 08:33 | Outpatient (BNVA) | payer MEDICARE, BC, SELFPAY | PROVIDERS: PCP Family Medicine; Referring Provider Family Medicine; Visit Provider Student in an Organized Health Care Education/Training Program | DX: M17.11 Unilateral primary osteoarthritis, right knee (principal) | CPT/HCPCS: 20610; J1040 ==

== ENCOUNTER 2024-01-05 05:31 | Outpatient (CLI) | payer MEDICARE, BC, SELFPAY ==
[2024-01-05 14:33] LABS: HCT 40.6 % (36.0-46.0); HGB 14.2 g/dL (11.2-15.7); MCH 30.4 pg (27.0-33.0); MCV 87 fL (80-95); MPV 9.3 fL (8.0-11.0); Platelet Count 295 10^3/uL (130-400); RBC 4.67 10^6/uL (3.93-5.22); RDW 12.3 % (11.7-14.6); RDW-SD 38.9 fL
[2024-01-05 15:54] LABS: Anion Gap 9.2 mmol/L (3-11); BUN 16 mg/dL (7-18); CO2 25.8 mmol/L (21.0-32.0); CREATININE 0.7 mg/dL (0.55-1.02); Calcium 8.6 mg/dL (8.5-10.1); Chloride 106 mmol/L (98-107); Estimated GFR 91.26 (mL/min/1.73m2); Glucose 90 mg/dL (74-106); Potassium 3.9 mmol/L (3.5-5.1); Sodium 141 mmol/L (136-145)
== END 2024-01-05 05:32 | disposition home or self-care (01) ==
LOC: LBO 05:31
PROVIDERS: PCP Family Medicine; Visit Provider Student in an Organized Health Care Education/Training Program
DX: M17.11 Unilateral primary osteoarthritis, right knee (principal); Z01.818 Encounter for other preprocedural examination
CPT/HCPCS: 36415; 80048; 85027

== ENCOUNTER 2024-01-20 09:45 | Day surgery (SDC) | payer MEDICARE, BC, SELFPAY ==
[2024-01-20] VITALS (14 sets, daily range): BP systolic 100–135; BP diastolic 49–92; PULSE 50–74; RESP 11–17; TEMP 36.1–36.5; O2SAT 88–99; BMI 25.0
[2024-01-20] MEDS: Acetaminophen 500 MG TAB 1000 MG PO (10:48)
[2024-01-20] MEDS: Celecoxib 200 MG CAP 400 MG PO (10:48)
[2024-01-20] MEDS: Gabapentin 300 MG CAP PO (10:48)
--- NOTE | 2024-01-20 10:57 | W.ANESPRE ---
General Info Date of Service Date Performed: 01/20/24 Height: 5 ft 4 in Weight: 66.1 kg Body Mass Index (BMI): 25.0 Surgical Procedure: Operation Date: 01/20/24 13:25 Proposed Procedure Side Surgeon p Knee Total Arthroplasty Right Joey Esteban MD Meds Allergies and Home Medications Allergies Allergy/AdvReac Type Severity Reaction Status Date / Time No Known Allergies Allergy Verified 01/20/24 10:41 Home Medication Medication Instructions Recorded acetaminophen 500 mg tablet 1,000 mg (2 x 500 mg) PO Q8H PRN 12/25/21 pain #90 tabs melatonin 3 mg capsule 3 mg PO HS PRN 04/14/23 venlafaxine 75 mg tablet,extended 150 mg (2 x 75 mg) PO DAILY #180 01/13/24 release 24 hr tabs hydrochlorothiazide 25 mg tablet 25 mg PO DAILY #90 tabs 01/16/24 Current Visit Medications: Current Medications Generic Name Dose Route Start Last Admin Trade Name Freq PRN Reason Stop Dose Admin Acetaminophen 1,000 mg 01/20/24 06:00 01/20/24 10:48 Acetaminophen 500 Mg Tab PO 01/20/24 23:59 1,000 mg PREOP AALIYAH Administration Celecoxib 400 mg 01/20/24 06:00 01/20/24 10:48 Celecoxib 200 Mg Cap PO 01/20/24 23:59 400 mg PREOP AALIYAH Administration Gabapentin 300 mg 01/20/24 06:00 01/20/24 10:48 Gabapentin 300 Mg Cap PO 01/20/24 23:59 300 mg PREOP AALIYAH Administration Hydromorphone HCl 0.5 mg 01/20/24 10:06 Hydromorphone 2 Mg/Ml Syr IVP 02/19/24 10:05 Q2H PRN PRN Ringer's Solution 1,000 mls @ 80 mls/hr 01/20/24 06:00 IV 01/20/24 23:59 INFUSION AALIYAH Cefazolin Sodium/Dextrose 2 gm in 50 mls @ 100 mls/hr 01/20/24 06:00 Ancef Duplex IVPB 01/20/24 23:59 PREOP AALIYAH Tranexamic Acid/Sodium Chloride 1,000 mg in 100 mls @ 600 mls/hr 01/20/24 06:00 IVPB 01/20/24 23:59 PREOP AALIYAH Cefazolin Sodium/Dextrose 1 gm in 50 mls @ 100 mls/hr 01/20/24 12:00 Ancef Duplex IVPB 01/21/24 04:29 Q8H AALIYAH IV Miscellaneous Supplies 1 each 01/20/24 06:00 Iv Access IV 01/20/24 23:59 DIRECTED AALIYAH Ondansetron HCl 4 mg 01/20/24 10:06 Ondansetron 4 Mg/2 Ml Vial IVP 02/19/24 10:05 Q6H PRN PRN Nausea Oxycodone HCl 0 mg 01/20/24 10:06 Oxycodone 5 Mg Tab PO 02/19/24 10:05 Q3H PRN PRN Pain Sodium Chloride 0 ml 01/20/24 06:00 Normal Saline Flush 10 Ml Syr IV 01/20/24 23:59 PRN PRN Sodium Chloride 0 ml 01/20/24 06:00 Normal Saline 10 Ml Vial IJ 01/20/24 23:59 DIRECTED PRN Sterile Water 0 ml 01/20/24 06:00 Water,Injection,Sterile 10 Ml Vial IJ 01/20/24 23:59 DIRECTED PRN PFSH Active Problems Active Problems: Problem Status Onset Code Osteoarthritis of right knee M17.11 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 Osteopenia 03/03/18 M85.80 Essential hypertension 03/03/18 I10 Depression F32.9 Medical History Medical History Closed fracture of left proximal humerus (09/30/21) Impacted cerumen, bilateral Pelvic pain in female Rotator cuff tear, left Injection: 02/26/2021 Tendinitis of left rotator cuff Injection: 02/26/2021 Tendinitis of long head of biceps brachii of left shoulder Injection: 02/26/2021 Acute shoulder pain due to trauma Travel within last 14 days Family history of colon cancer Rectal polyp Family history of colon cancer Colonoscopy planned Sensorineural hearing loss of both ears Fibroma 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 Low back pain refer to pain clinic 5 days of prednisone Syncope Psoriasis Degeneration of lumbar intervertebral disc Cervical spondylosis Cervical radiculopathy Acute right-sided low back pain with right-sided sciatica (03/03/18) Acute right hip pain (03/03/18) Surgical History Surgical History History of total left knee replacement (12/25/21) History of colonoscopy Status post arthroscopy of right shoulder (07/14/19) Debridement, acromioplasty, biceps tenotomy and distal clavicle excision History of foreign body in eye left, s/p excision History of laparoscopic cholecystectomy Hx of rotator cuff surgery left shoulder H/O medial meniscus repair of left knee Tobacco Smoking/Tobacco Use Status: Never Passive smoking exposure: Yes Second hand exposure: Yes Alcohol Alcohol Intake: current Alcohol intake frequency: a few times a month Alcohol type: wine Substance Use Substance use: Never Substance use type: does not use Vital Signs and Lab Results Vital Signs Most Recent Vital Signs in EMR: Most Recent Vital Signs Temp Pulse Resp BP Pulse Ox 36.3 C L 74 16 135/92 H 98 01/20/24 10:42 01/20/24 10:42 01/20/24 10:42 01/20/24 10:42 01/20/24 10:42 Lab Results Blood Type / Crossmatch: No Data to Display Complete Blood Count: White Blood Count 8.60 10^3/uL (4.4-10.8) 01/05/24 14:29 Red Blood Count 4.67 10^6/uL (3.93-5.22) 01/05/24 14:29 Hemoglobin 14.2 g/dL (11.2-15.7) 01/05/24 14:29 Hematocrit 40.6 % (36.0-46.0) 01/05/24 14:29 Platelet Count 295 10^3/uL (130-400) 01/05/24 14:29 Complete Metabolic Panel: Sodium 141 mmol/L (136-145) 01/05/24 14:29 Potassium 3.9 mmol/L (3.5-5.1) 01/05/24 14:29 Chloride 106 mmol/L (98-107) 01/05/24 14:29 Carbon Dioxide 25.8 mmol/L (21.0-32.0) 01/05/24 14:29 BUN 16 mg/dL (7-18) 01/05/24 14:29 Creatinine 0.7 mg/dL (0.55-1.02) 01/05/24 14:29 Est GFR (CKD-EPI 2020) 91.26 (mL/min/1.73m2) 01/05/24 14:29 Calcium 8.6 mg/dL (8.5-10.1) 01/05/24 14:29 Glucose 90 mg/dL (74-106) 01/05/24 14:29 Liver Function Panel: No Data to Display Coagulation Panel: No Data to Display Cardiac Panel: No Data to Display Arterial Blood Gas: No Data to Display Venous Blood Gas: No Data to Display Pancreas Panel: No Data to Display Thyroid Panel: No Data to Display Infectious Disease: No Data to Display Blood Cultures: No Data to Display Toxicology Panel: No Data to Display Anesthesia Assessment and Plan Anesthesia History Personal History: No History of Anesthesia Complications Family History: No Family History of Anesthesia Complications Exercise Tolerance Exercise Tolerance: Metabolic Equivalents>4 Pertinent Negatives Pertinent Negatives: No Symptoms of GERD, No Major Cardiovascular Symptoms or Complaints, No Major Pulmonary Symptoms or Complaints and No History of CVA/TIA Cardiac & Pulmonary Exam Cardiac Exam: Normal S1/S2 Heart Sounds Pulmonary Exam: Clear Bilateral Breath Sounds Implantable Cardiac Device Does patient have a Pacemaker or an ICD?: No Airway Exam Known Difficult Airway: No Mallampati Class: 1 Mouth Opening: Normal (> 3cm) Thyromental Distance: Greater than 3 cm Neck Range of Motion: Full ROM Neck Circumference: Normal Teeth Condition: Normal Dentition ASA Classification ASA Score: ASA 2 Emergency Case?: No NPO Status NPO Status: NPO Clears >2 hours, Solids >8 hours Anesthesia Plan Resuscitation Status: Full Code Anesthesia Technique: Spinal Anesthesia Airway Planned: Natural Airway Pain Management: Surgeon and patient request nerve block Monitors Used: Standard Monitors
[2024-01-20] MEDS: Lactated Ringers 1,000 ML 80 ML IV (11:10)
[2024-01-20] MEDS: ceFAZolin 2 GM/50 ML BAG IVPB (11:56)
[2024-01-20] MEDS: TRANEXAMIC ACID/SOD. CHL. 1,000 MG/100 ML BAG 600 MG IVPB (12:08)
--- NOTE | 2024-01-20 12:22 | W.ANESNERVE ---
Nerve Block Single Injection Procedure Date and Time Date Performed: 01/20/24 Procedure Start: 11:30 Location Where Procedure Performed Procedure Location: Day Surgery Unit Reason Performed: Postoperative Analgesia Requesting Provider: Joey Esteban Timeout Performed Timeout Performed: Yes Monitoring Used ECG, Blood Pressure, SpO2 and See EMR for corresponding vital signs Sterility Sterility: Hand Hygiene, Surgical Cap, Surgical Mask, Sterile Gloves and Chlorhexidine Sedation Given During Procedure Sedation Given (Indicate Dose Given): No Sedation given Patient Mental Status Patient Mental Status: Awake Nerve Block 1st Nerve Block: Laterality: Right Block Type: Adductor Canal Ultrasound Image Saved?: Yes Needle / Catheter Used: 100mm SonoPlex II Local Anesthetic Bolus (Indicate Dose Given): Lidocaine used for local infiltration of skin, Injected in 3-5ml increments after negative blood aspiration, Bupivacaine 0.25% Dose:: 10ml and Exparel Dose:: 10ml Additives (Indicate Dose Given): None Ultrasound: Sterile probe cover and gel used Nerve Stimulator: Not Used Paresthesia: None Procedure Tolerated: No Complications and Patient tolerated well Procedure Outcome: Successful Performed By: Casey Garcia
--- NOTE | 2024-01-20 12:57 | W.PM.DS.N ---
Date of service: 01/20/24 Time of Service: 13:04 Discharge Plan Disposition Patient Disposition: Home Condition: Good Discharge Details Reason For Visit: Right knee DJD Attending Provider: Joey Esteban Primary Care Provider: Lorraine Garcia Home Meds and New Rx's Prescriptions: New acetaminophen 500 mg tablet 1,000 mg PO Q8H PRN Qty: 90 0RF Rx Instructions: Take two tablets up to every 8 hours as needed for pain aspirin 81 mg tablet,delayed release (DR/EC) 81 mg PO BID 30 Days Qty: 60 0RF celecoxib [Celebrex] 200 mg capsule 200 mg PO BID PRNQty: 60 0RF Rx Instructions: Take one tablet twice daily for pain and inflammation dexamethasone 4 mg tablet 4 mg PO DAILY Qty: 2 0RF Rx Instructions: Take one tablet once daily for two days docusate sodium [Colace] 100 mg capsule 100 mg PO BID Qty: 30 0RF gabapentin 300 mg capsule 300 mg PO QHS Qty: 14 0RF Rx Instructions: Take one tablet at bedtime pantoprazole 40 mg tablet,delayed release (DR/EC) 40 mg PO DAILY Qty: 14 0RF oxycodone 5 mg tablet 5 mg PO Q4H PRNQty: 18 0RF Rx Instructions: Take one tablet up to every 4 hours as needed for severe postoperative pain Continued melatonin 3 mg capsule 3 mg PO HS PRN venlafaxine 75 mg tablet extended release 24hr 150 mg PO DAILY Qty: 180 3RF Rx Instructions: Needs to be Sun [employer], others cause sever gastric upset. hydrochlorothiazide 25 mg tablet 25 mg PO DAILY Qty: 90 4RF Discontinued acetaminophen 500 mg tablet 1,000 mg PO Q8H PRN (Reason: pain) Qty: 90 3RF Discharge Instructions Additional Instructions: Total Knee Discharge Instructions Activity: The most important activity is to walk and to work on gentle motion (both flexion and extension). You should try to take short walks a few times a day. It is important that when resting you work on keeping the knee straight. Avoid putting a pillow behind the knee as this will encourage flexion. Work on range of motion exercises as provided by Physical Therapy. - Start outpatient physical therapy within 2 weeks. - You should wear the IFEANYI hose on both legs for 2 weeks. You may remove these at night. You may also use any compression sock in place of the IFEANYI hose. - Utilize [employer] to review exercises, see videos on exercises and obtain basic information pertaining to your surgery and your recovery. Dressing: Remove the Price wrap by 2 days after your surgery and put on the IFEANYI stocking given to you from the hospital. Keep the surgical dressing (underneath the PRICE wrap) in place for at least one week. After the first week it may be removed and replaced with light gauze and tape or nothing. The wound and dressing may get wet after 3 days but avoid soaking the dressing or otherwise it will need to be changed. Many people prefer covering the dressing with cling wrap (saran wrap) to minimize it from getting soaked. If it gets wet, just pat dry. If it starts to peel off then it will need to be changed. Medications: - You should take Tylenol and anti-inflammatory Celebrex as your primary pain control medications. If the Celebrex is too expensive or not covered, please call the office for another alternative (Advil/Ibuprofen or Naproxen/Aleve) - You have been prescribed a stronger pain medication Oxycodone for breakthrough pain, take as needed as prescribed. - You have also been prescribed a stomach acid reduction agent Pantoprozole to help reduce stomach acid and reflux. - You have been prescribed Gabapentin to take at night for restlessness and nerve pain. - You will be taking Aspirin 81mg twice a day for DVT prevention unless instructed otherwise. - You have also been prescribed Decadron to take to control post-operative nausea and pain. You will start this tomorrow. - If you have constipation you should take Colace (which has been prescribed) or Miralax (which is available [id number]). It takes most people 3-4 days to have a bowel movement. Follow-up: 2 weeks If you have any acute concerns or questions, please do not hesitate to contact the office at [phone]. You may contact Dr. Esteban with any questions after hours through the hospital at [phone] or on his cell phone at [phone]. Stand Alone Forms: Anesthesia Discharge Inst., Anes.Nerve Block Instructions, Ramon Thompson ([facility]) Referrals: Joey Esteban MD [ [facility] STAFF PHYSICIAN] - 01/30/24 11:00 am Equipment/Supplies: Walker Activity:: Elevate Remove Dressings/Wound Care:: Do Not Remove Shower/Bathe:: Cover Diet:: As Tolerated Discharge Orders Discharge Orders: Discharge Order (Routine); Ordered 01/20/24 Ordered By: Dixie Alves DS: Summary Time Spent with Patient providing and/or coordinating discharge services: Less than 30 minutes Status at Discharge Functional status at discharge: uses cane/walker Overall status at discharge: patient is progressing back to baseline Mental Status: mental status grossly normal Speech and Movement: speech and movement normal Mood: congruent mood Affect: normal affect Quality:SDOH Health Related Social Needs: No Data to Display Exam Psych Mental Status: mental status grossly normal Speech and Movement: speech and movement normal Mood: congruent mood Affect: normal affect DS: Data Vitals/I&O Vitals and I&O: Vital Signs Temperature 97.7 F 01/20/24 11:28 Temperature Source Tympanic 01/20/24 11:28 Pulse 58 L 01/20/24 11:28 Pulse Rhythm Regular 01/20/24 10:42 Respiratory Rate 13 01/20/24 11:28 Respiratory Depth Deep 01/20/24 10:42 Blood Pressure 123/55 L 01/20/24 11:28 Blood Pressure Mean 77 01/20/24 11:28 Blood Pressure Position Supine 01/20/24 11:28 Pulse Oximetry 97 01/20/24 11:28 Oxygen Delivery Method Room Air 01/20/24 11:28 Oxygen Flow Rate 0 01/20/24 11:28 Pain Level 0 01/20/24 10:42 Intake & Output 01/19/24 01/20/24 01/20/24 23:59 11:59 23:59 Intake Total 150 / 150 Balance 150 / 150 Weight 145 lb 11.609 oz Intake: IV 150 / 150 PFSH All Active Problems Osteoarthritis of right knee (Acute) Injection: 09/29/23; 06/09/23; 01/27/23; 09/13/2021; 06/06/2021; 12/21/2020; 05/29/2020 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 (Acute) Osteopenia (Chronic 03/03/18) Essential hypertension (Chronic 03/03/18) Depression (Chronic) double venlafaxine Medical History Closed fracture of left proximal humerus (09/30/21) Impacted cerumen, bilateral Pelvic pain in female Rotator cuff tear, left Injection: 02/26/2021 Tendinitis of left rotator cuff Injection: 02/26/2021 Tendinitis of long head of biceps brachii of left shoulder Injection: 02/26/2021 Acute shoulder pain due to trauma Travel within last 14 days Family history of colon cancer Rectal polyp Family history of colon cancer Colonoscopy planned Sensorineural hearing loss of both ears Fibroma 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 Low back pain refer to pain clinic 5 days of prednisone Syncope Psoriasis Degeneration of lumbar intervertebral disc Cervical spondylosis Cervical radiculopathy Acute right-sided low back pain with right-sided sciatica (03/03/18) Acute right hip pain (03/03/18) Surgical History History of total left knee replacement (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 Pets and animals: No Sexually active: Yes Do you think of yourself as: straight/heterosexual Current gender identity: female What is your relationship status?: How often do you talk on the phone with friends or family?: three or more times per week How often do you get together with friends or relatives?: three or more times per week How often do you attend pentecostalism or rastafarian services?: decline to answer Do you belong to any clubs or organized social groups?: yes Panel score (0-1 are the most socially isolated patients): 3 What type of physical activity do you participate in: walking, bicycling and swimming Duration: 30-45 minutes/day Frequency: 3-4 times per week Dana/Mandaen: No preference Special dana needs: No Seatbelt use: always Helmet use: Yes Helmet use: always Drive intox or ride w/intox 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
--- NOTE | 2024-01-20 13:42 | W.PM.OP ---
Date of service: 01/20/24 Time of Service: 12:20 Operative Note Operative Note DATE OF PROCEDURE: 01/20/24 PRE-OP DIAGNOSIS: Right Knee Osteoarthritis POST-OP DIAGNOSIS: same PROCEDURE: Right Total Knee Replacement SURGEON: Joey Esteban DRY CLEANING SUPERVISOR: Dixie Alves ANESTHESIA TYPE: Spinal Refer to Anesthesia Record ESTIMATED BLOOD LOSS: 50 PATHOLOGY: none sent TOURNIQUET TIME: 0 COMPLICATIONS: None Patient was transported to: PACU Patient's condition: stable Implants: 1. Depuy Attune Cementless Cruciate Retaining Femoral Component, Size 5 2. Depuy Attune Cementless Fixed Bearing Tibial Component, Size 4 3. Depuy Attune 5x8 CR/FB Poly 4. Depuy Attune Patellar Component, Size 35 Indications: I have seen Trena in clinic for symptoms of knee arthritis, confirmed with radiographic findings. She has exhausted nonoperative methods and was having significant limitations in daily function and desired better function and less pain. I discussed the technical details of a knee replacement. She had a successful replacement on the left. I explained the risks of the procedure to include, but not limited to, bleeding, infection, pain, stiffness, fracture, damage to nerves and vessels, damage to muscles and tendons, loosening, need for repeat procedure, blood clot and cardiopulmonary demise. Despite these risks, Trena elected to proceed. Findings: There was significant signs of arthritis throughout the knee involving the trochlea, patella, and medial compartment. Procedure Description: Trena was greeted in the preoperative holding area where the correct side was identified and marked. The consent was reviewed with the patient and signed. The history and physical was updated. All questions were answered. Preoperative medications were administered: Acetaminophen 1000mg, Celebrex 400mg, and Gabapentin 300mg. An adductor canal block was then administered by the anesthesia team in the [facility]. Trena was taken back to the operating room. A spinal anesthestic was then administered. The patient was placed into the supine position on the operating room table. A nonsterile tourniquet was placed high onto the leg but only used for cementing. Posts were placed for positioning during the procedure. All bony prominences were well padded. Prophylactic antibiotics in the form of Cefazolin were administered. 1g of Tranxemic Acid was given intravenously within 30 minutes of incision. The right leg was then prepped with Chloraprep and draped in a standard fashion with impervious stockinette. A second prep with Chloraprep was performed prior to application of Iodine impregnated skin protection. A timeout to confirm correct identity, side and site, procedure, allergies, anesthesia, and medical concerns was performed. With the knee in some flexion, a midline incision was made overlying the knee. Full thickness skin flaps were raised once the extensor mechanism was encountered. These were raised medially and laterally. Any bleeding was controlled with electrocautery. Once the extensor mechanism was fully exposed, a medial parapatellar arthrotomy was performed in a flexed position. All bleeding from the arthrotomy and the geniculate arteries was coagulated. A medial subperiosteal peel was performed with electrocautery to the midcoronal plane. The fat pad was removed while keeping the patellar tendon protected. The anterior distal femur synovium was removed for later visualization. The ACL and PCL were resected and the anterior horn of the lateral meniscus was transected. The knee was then flexed with the patella everted. Using a step drill, and based on preoperative templating, the femoral canal was entered. This was done with a step drill without any difficulty. The intramedullary distal femoral cut guide was inserted, set to a 5 degree valgus cut and 9mm cut thickness. The distal femoral cut guide was then held in position and pinned. With the soft tissues protected, the distal cut was performed. This was passed over a few times to ensure a planar cut. I then turned attention to the tibia. The extramedullary guide was placed onto the leg. The distal aspect was slid medial to adjust for position of center of ankle and stay in line with shaft of the tibia. Approximately 3-5 degrees of posterior slope was kept in the proximal cutting guide. The center of the guide was aligned with the PCL. The stylus was used to assess cut thickness. The medial side, most involved side, was set for a 6mm cut. This was then held in position and pinned into place with 2 additional pins and a cross pin for stability. The medial and lateral collateral ligaments were protected and the cut was performed. With this completed, it was assessed and noted to be of appropriate dimensions. The guide was removed. A spacer block was inserted and the knee was brought into extension. The 7mm spacer block provided full extension, without hyperextension and with stability of both the medial and lateral collateral ligaments was assessed. The pins from the femur and the tibia were then removed. The distal femur was then sized. The anterior stylus was placed onto the lateral ridge of the anterior femur. This indicated a size 5 femur. The external rotation of the guide was adjusted to 3 degrees to match the epicondylar axis, perpendicular to Shalonda?s line. The 4-in-1 cutting guide was the placed. The posterior medial femur cut was evaluated and appeared of good thickness. The spacer block was inserted underneath the cutting guide and stability was confirmed in 90 degrees of flexion. An susan wing was used to confirm appropriate position of the anterior cut to avoid notching. This cutting guide was ensured to be flush on the cut surface and then pinned into place with headed pins. While protecting the soft tissues, quad tendon, and collateral ligaments, the anterior and posterior cuts were performed with a saw. The central two pins were removed and the posterior and anterior chamfers were cut next. The notch-cutting guide was placed. This was pinned to lateralize the femoral component as much as possible while keeping it flush on the cut surface. This was then pinned into position. A reciprocating saw was used to make the notch cut. A rasp smoothed the cut surfaces. The medial and lateral menisci were removed. A trial femoral component was then inserted, impacted down to the cut surfaces, and the lug holes were drilled. A provisional trial tibial component was placed and the knee was brought through range of motion. The polyethylene was trialed until there was good flexion and extension with excellent stability to the medial and lateral collaterals. The patella was tracking without thumbs. A size 8mm polyethylene component provided the best range of motion and stability with less than 2mm gapping with medial and lateral stress and full extension without significant hyperextension. The tibial cut surface was fully exposed. The tibia was then sized as a 4. The tibia had been previously marked during trialing to correspond to the center of the tibial component to help with rotation. The trial was aligned to this josue, approximately rotated to the medial 1/3rd of the tibial tubercle. The trial was pinned into place. The tibia was prepared with a reamer and a keel punch and lug holes. The knee was then brought into extension and the patella was measured as 21mm. Using the patellar clamp and cut guide, this was resected to a flat surface with at least 13mm of thickness remaining. The size 35 patella fit the best. This was oriented and then clamped into position. The lugs were drilled. The trial components were removed. The final components were opened on the back table. The periosteal and capsular tissues, especially posteriorly, around the knee were then systematically injected with a periarticular cocktail consisting of 246mg of Ropivacaine, 0.5mg of Epinephrine, 0.08mg of Clonidine, and 30mg of Ketorolac, diluted to 100cc. On the back table, with the implants opened, the cement was mixed. One batch of high viscosity cement was prepared with vacuum assistance. After the cement was ready a small amount was placed on the cut surface of the patella and the patellar button was clamped into position and held. While the cement was hardening, the cementless knee components were placed. Starting with the tibial component, the tibia was subluxed anteriorly and the lug holes of the component were lined up. The tibia was then impacted with an impactor and mallet until the tibial component was in contact with the tibia. The final polyethylene component was inserted. Then, the femoral component was inserted. The lug holes were aligned and the component was impacted into position. The knee was irrigated with Surgiphor Betadine solution. This was allowed to sit in the knee for 3 minutes and then it was irrigated out with saline. After the cement had finally cured, approximately 15min, the clamp was removed from the patella and the knee was taken through range of motion. The patella was tracking with a no-thumbs technique. The capsule was then reapproximated with a No. 1 Vicryl at multiple locations. The capsule was finally closed with a No. 2 Stratafix, barbed suture. The second dosing of 1g TXA was started. Deep tissues were then reapproximated with 0 Vicryl and 2-0 Vicryl. The skin was closed with a running 3-0 Monocryl in a subcuticular fashion. This was reinforced with skin glue. A Mepilex silver dressing was applied along with a [id number] DONNA wrap. A CryoCuff was applied. Trena was transferred to the hospital bed without difficulty an suffering no apparent complication. Trena has a good prognosis. Physical therapy will start today and without restrictions, weight-bearing as tolerated. Aspirin 81mg BID will be used for DVT prophylaxis.
--- NOTE | 2024-01-20 14:00 | W.ANESPOSTOP ---
Postoperative Evaluation Date, Time and Location Date Performed: 01/20/24 Time Performed: 14:00 Patient Location: Day Surgery Unit Vital Signs Most Recent Imported Vital Signs: Most Recent Vital Signs Temp Pulse Resp BP Pulse Ox 36.5 C 52 L 17 114/83 93 01/20/24 13:52 01/20/24 13:52 01/20/24 13:52 01/20/24 13:52 01/20/24 13:52 Pain Score Most Recent Pain Score: Most Recent Pain Score Pain Level 0 01/20/24 13:52 Assessment Mental Status: Awake (Alert & Oriented to Patient Baseline) Airway and Respiratory Function: Patent airway with normal (patient baseline) respiratory exam Cardiovascular Function: Hemodynamically Stable Hydration Status: Adequately Hydrated Nausea & Vomiting: No Nausea or Vomiting Pain: Pt. Denies Any Pain Peripheral Nerve Block: Other (Spinal Sensory still wearing off. Motor has returned.)
--- NOTE | 2024-01-20 15:26 | PT.INIE ---
PT Notes Visit Reasons: Right knee DJD Physical Therapy Day Surgery Initial Evaluation Date: 01/19/2022 Referring Doctor: CINDY Chand PT Orders: PT CONSULT: S/P Ortho Surgery Precautions: WBAT on L LE with AD. 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 PMHX: Medical History Closed fracture of left proximal humerus (09/30/21) Impacted cerumen, bilateral Pelvic pain in female Rotator cuff tear, left Injection: 02/26/2021 Tendinitis of left rotator cuff Injection: 02/26/2021 Tendinitis of long head of biceps brachii of left shoulder Injection: 02/26/2021 Acute shoulder pain due to trauma Travel within last 14 days Family history of colon cancer Rectal polyp Family history of colon cancer Colonoscopy planned Sensorineural hearing loss of both ears Fibroma 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 Low back pain refer to pain clinic 5 days of prednisone Syncope Psoriasis Degeneration of lumbar intervertebral disc Cervical spondylosis Cervical radiculopathy Acute right-sided low back pain with right-sided sciatica (03/03/18) Acute right hip pain (03/03/18) Surgical History History of total left knee replacement (12/25/21) History of colonoscopy Status post arthroscopy of right shoulder (07/14/19) Debridement, acromioplasty, biceps tenotomy and distal clavicle excisionHistory of foreign body in eye left, s/p excision History of laparoscopic cholecystectomy Hx of rotator cuff surgery left shoulder H/O medial meniscus repair of left knee Social History/Home Situation: Lives with in a private home with 2-3 steps to enter without rails. Independent with all aspects of ADLs prior to surgery. Equipment Owned/DME: [facility] Subjective: 1/10 pain in the R knee. Objective: General Observation: DONNA wraps to left LE. Cryocuff to left knee. TEDS on right leg. Fella present throughout evaluation. Mental Status: Alert and oriented x4 Pain: As above ROM: Right Lower Extremity: Hip flexion WFL. Hip abduction WFL. Knee flexion 0-100 actively. Ankle dorsiflexion WFL. Ankle plantarflexion WFL. Left Lower Extremity: Hip flexion WFL. Hip abduction WFL. Knee flexion WFL. Knee extension WFL. Ankle dorsiflexion WFL. Ankle plantarflexion WFL. Strength: Right Lower Extremity: Hip flexors 5/5. Hip abductors 5/5. Knee flexors 3-/5. Knee extensors 3+/5. Ankle dorsiflexors 4/5. Ankle plantarflexors 5/5. Left Lower Extremity: Hip flexors 5/5. Hip abductors 5/5. Knee flexors 4/5. Knee extensors 4/5. Ankle dorsiflexors 5/5. Ankle plantarflexors 5/5. Sensation: Intact rest pain and light pressure in bilateral lower extremities Bed Mobility/Transfers: Minimal cueing provided for use of B hands as needed for support, movement sequence, AD management, and posture to reduce fall risk and minimize pain report Supine to sit standby assist Sit to stand stand by assist Stand to sit standby assist Bed to chair standby assist Gait: Facilitated safe and correct performance of level surface ambulation providing minimal verbal cueing for correct limb sequence, posture, and AD management covering a distance of 150 feet with step through reciprocal heel-toe gait pattern using the front-wheeled walker. Stairs: Guided patient with safe negotiation of 3 x 4 inch steps and 2 x 6 inch steps while holding onto bilateral rails with step to gait pattern requiring only standby assist and minimal verbal cueing for limb sequence, increased knee flexion on the right during each ascent, and hand placement to reduce fall risk and minimize pain report. Balance: Static Sitting: Normal Dynamic Sitting: Normal Static Standing: Fair Dynamic Standing: Fair Special Tests: Mobility Limitations Standardized Measure [facility] AM-PAC 6 clicks Basic Mobility Inpatient Short Form: Raw Score: 24 CMS Score: 0% deficit Informed Consent Education: Patient instructed in purpose of PT consult. Trained patient and with correct performance of exercises below to maximize motor control, joint flexibility, soft tissue extensibility of the R knee musculature: Access Code: [email or web address] URL: [email or web address] Date: 01/20/2024 Prepared by: Yokasta Silvio Exercises - Supine Quad Set - 1 x daily - 7 x weekly - 1 sets - 10 reps - 5 hold - Supine Heel Slide - 1 x daily - 7 x weekly - 1 sets - 10 reps - 5 hold - Supine Ankle Pumps - 1 x daily - 7 x weekly - 1 sets - 10 reps - 5 hold - Small Range Straight Leg Raise - 1 x daily - 7 x weekly - 1 sets - 10 reps - 5 hold - Seated March - 1 x daily - 7 x weekly - 1 sets - 10 reps - 5 hold Assessment: Trena requires the use of a front-wheeled walker for all mobility performance to maximize independence and reduce fall risk at home. She presents with clinical signs and symptoms consistent with current/admitting diagnoses that have resulted to mobility limitations, gait instability, generalized weakness, and impairment of motor control as demonstrated by the following impairment level findings: 1. Decreased strength to R knee major muscle groups 2. Impaired standing balance 3. Limitation of joint range of motion in R knee flexion Impairments are contributing to the following functional limitations: 1. Inability to safely ambulate without assistive device 2. Increase completion time for mobility ADL performance 3. Increased fall risk Patient is assessed as a 62977 moderate complexity based on the following: History: 73-year-old female impairment level findings, functional limitations, and past medical history as indicated above Examination: Demonstrable impairment in strength, balance, and mobility level with underlying impairments and functional limitations as documented above Presentation: Evolving Decision Makin moderate complexity Goals: N/A. PT evaluation and 1-2 treatment sessions only for functional mobility training using recommended AD and for HEP instruction. Plan of Care/Treatment Plan: N/A. PT evaluation and 1-2 treatment session only for functional mobility training using recommended AD and for HEP instruction. DISCHARGE RECOMMENDATIONS: [] Home with no services [] [] Home with services [specify] [X] Home with outpatient PT. Home when medically cleared by orthopedic surgeon. Will benefit from outpatient PT services in order to facilitate return to independent community ambulation without an assistive device. [] SNF for continued rehabilitation [] [] [facility] [] [] SNF versus LTC based on ability to participate and progress [] TREATMENT CODE/TIME: 35927 x 20 minutes for 1 unit, 90497 x 12 minutes for 1 unit (15:26-15:58). Thank you for the opportunity to participate in the care of this patient. Please sign an return this page within 30 days if you agree with the above POC. Thank you! Physician Signature Date Yokasta Anguiano PT, DPT, CLT [facility] [place], [place]
== END 2024-01-20 16:17 | disposition home or self-care (01) ==
PROVIDERS: PCP Family Medicine; Visit Provider Student in an Organized Health Care Education/Training Program
PROC: (CPT 27447; principal; 2024-01-20 13:15)
DX: M17.11 Unilateral primary osteoarthritis, right knee (principal); M85.80 Other specified disorders of bone density and structure, unspecified site; I10 Essential (primary) hypertension; H90.3 Sensorineural hearing loss, bilateral; Z96.652 Presence of left artificial knee joint
CPT/HCPCS: 27447; C1776; 76942; 97162; 97530; C9290; J0665; J0690; J1100; J2250; J2401; J2405; J2598; J2704

== ENCOUNTER 2024-01-30 11:12 | Outpatient (CLI) | payer MEDICARE, BC, SELFPAY ==
--- NOTE | 2024-01-30 11:28 | DI.RAD_ITS ---
Exam(s) XR STANDING ALIGNMENT EXAM: XR STANDING ALIGNMENT CLINICAL HISTORY: 1ST POST OP S/P R TKA. TECHNIQUE: 2D digital imaging was performed. COMPARISON: CR XR STANDING ALIGNMENT from 01/07/2022 FINDINGS: Four views There has been interval placement of a right knee prosthesis. Both knee prostheses appears satisfact ory. Both hips appear unremarkable as do the ankles. Bone density is normal. No osseous lesions. IMPRESSION: As above. DATA REPOSITORY: RADIATION DOSE DELIVERED:
--- NOTE | 2024-01-30 11:28 | DI.RAD_ITS ---
Exam(s) XR KNEE RT 1V EXAM: XR KNEE RT 1V CLINICAL HISTORY: 1ST POST OP S/P R TKA. TECHNIQUE: 2D digital imaging was performed. COMPARISON: CR XR KNEE LT 2V AP,LAT from 01/30/2024 FINDINGS: Single lateral view On this lateral view the components of the knee prosthesis are satisfactory with no fracture or loose sharon evident. Bone density is normal. IMPRESSION: Stable appearance DATA REPOSITORY: RADIATION DOSE DELIVERED:
--- NOTE | 2024-01-30 11:29 | DI.RAD_ITS ---
Exam(s) XR KNEE LT 2V AP,LAT EXAM: XR KNEE LT 2V AP,LAT CLINICAL HISTORY: ANNUAL F/U L TKA. TECHNIQUE: 2D digital imaging was performed. COMPARISON: CR XR KNEE LT 2V AP,LAT from 01/27/2023 FINDINGS: Two views. Position alignment of the components of the left knee prosthesis are stable. No evidence of fracture s. There is slight increase in lucent zone subjacent to the tibial plateau component but now lucent zone around the deeper components of the tibial component. The femoral component appears well seated/unr emarkable IMPRESSION: Subtle finding at tibial plateau component, slightly more so than previous. Correlation with any cli nical signs of loosening recommended. DATA REPOSITORY: RADIATION DOSE DELIVERED:
== END 2024-01-30 11:13 | disposition home or self-care (01) ==
LOC: DIORS 11:12
PROVIDERS: PCP Family Medicine; Referring Provider Family Medicine
DX: Z96.651 Presence of right artificial knee joint (principal); Z47.1 Aftercare following joint replacement surgery; Z96.652 Presence of left artificial knee joint
CPT/HCPCS: 73560; 77073

== ENCOUNTER → 2024-03-01 10:56 | Outpatient (BNVA) | payer MEDICARE, BC, SELFPAY | PROVIDERS: PCP Family Medicine; Visit Provider Student in an Organized Health Care Education/Training Program | DX: Z47.1 Aftercare following joint replacement surgery (principal); Z96.651 Presence of right artificial knee joint ==

== ENCOUNTER → 2024-03-15 09:00 | Outpatient (BNVA) | payer MEDICARE, BC, SELFPAY | PROVIDERS: PCP Family Medicine; Visit Provider Student in an Organized Health Care Education/Training Program | DX: Z47.1 Aftercare following joint replacement surgery (principal); Z96.651 Presence of right artificial knee joint ==

== ENCOUNTER → 2024-04-12 08:58 | Outpatient (BNVA) | payer MEDICARE, BC, SELFPAY | PROVIDERS: PCP Family Medicine; Referring Provider Family Medicine; Visit Provider Student in an Organized Health Care Education/Training Program | DX: Z96.651 Presence of right artificial knee joint (principal) ==

== ENCOUNTER 2024-09-02 00:12 | Outpatient (CLI) | payer MEDICARE, BC, SELFPAY ==
--- NOTE | 2024-09-02 | DI.DEXA_ITS ---
Exam(s) XR DEXA BONE DENSITY W/WO CARLOS EXAM: XR DEXA BONE DENSITY W/WO CARLOS CLINICAL HISTORY: Z78.0 post menopausal TECHNIQUE: Hologic Horizon C densitometer analysis of left hip, lumbar spine and left forearm. Lat eral survey image of the thoracic and lumbar spine. COMPARISON: 2018 FINDINGS: Lateral view of the thoracic and lumbar spine shows no evidence of compression fractures. Bone mineral density measurements of the lumbar spine correspond to a total T-score of -1.1, in the osteopenic range. This represents a 6.7 percent increase compared with 2018. Bone mineral density measurements of the left hip correspond to a total T-score of -1.1. This repre sents a 3.7 percent decrease from 2018.. The femoral neck T-score is -1.8, in the osteopenic range. . Theleft forearm bone mineral density measurements correspond to a T-score of the distal 3rd of -1.2, in the osteopenic range. This represents a 4.0 percent decrease from 2018.. IMPRESSION: Mild osteopenia in the spine, hip and forearm.
== END 2024-09-02 00:32 ==
LOC: DI 00:13
PROVIDERS: PCP Family Medicine; Visit Provider Family Medicine
DX: Z13.820 Encounter for screening for osteoporosis (principal); Z78.0 Asymptomatic menopausal state; M81.0 Age-related osteoporosis without current pathological fracture
CPT/HCPCS: 77080

== ENCOUNTER 2024-09-15 02:34 | Outpatient (CLI) | payer MEDICARE, BC, SELFPAY ==
--- NOTE | 2024-09-15 12:44 | DI.MAMMO_ITS ---
Exam(s) MAMMO SCREENING EXAM: MAMMO SCREENING CLINICAL HISTORY: screening,Z12.39 TECHNIQUE: Bilateral full field digital CC and MLO mammographic images were obtained with 3D tomosyn thesis and utilizing computer aided detection (CAD). COMPARISON: Available for comparison. FINDINGS: Masses/Architectural Distortion: None seen. Microcalcifications: No suspicious pleomorphic-type are seen. Skin Thickening/Nipple Retraction: None. IMPRESSION: 1. No significant interval change with no specific features of malignancy noted. 2. Unless there is more urgent need, screening mammography is recommended, as per [employer] guidelines. BI-RADS Category 1 - Negative Breast Density - Category B - Scattered areas of fibroglandular density Breast density category C or D implies that the patient has dense breast tissue. Dense breast tissue is very common and is not abnormal but dense breast tissue can make it harder to find cancer on a ma mmogram. Also, dense breast tissue may increase their breast cancer risk. This information about the result of the mammogram report was provided to the patient to raise their awareness. Use this report when you speak with the patient about their risks for breast cancer, which includes their family hist ory. At that time, you may recommend for more screening tests (Ultrasound or MRI) as they might be us eful based on their risk. A negative radiographic report should not delay biopsy if a dominant or clinically suspicious mass is present. Up to ten percent of cancers are not identified on mammography. A negative report may reinforce clinical impression. Adenosis and dense breasts may obscure an underlying neoplasm. False positive reports average 6 to 10%. Patient will receive a letter notifying them of these results.
== END 2024-09-15 02:54 ==
LOC: DI 02:34
PROVIDERS: PCP Family Medicine; Visit Provider Family Medicine
DX: Z12.31 Encounter for screening mammogram for malignant neoplasm of breast (principal); R92.323 Mammographic fibroglandular density, bilateral breasts
CPT/HCPCS: 77063; 77067

== ENCOUNTER 2024-12-21 02:15 | Outpatient (CLI) | payer MEDICARE, BC, SELFPAY ==
[2024-12-21 14:23] LABS: ALT 40 U/L (14-59); AST 24 U/L (15-37); Albumin 4.1 g/dL (3.4-5.0); Alkaline Phosphatase 89 U/L (46-116); BUN 18 mg/dL (7-18); Bilirubin, Total 0.8 mg/dL (0.2-1.0); CREATININE 0.7 mg/dL (0.55-1.02); Calcium 9.3 mg/dL (8.5-10.1); Calculated LDL 177 mg/dL (<100); Chloride 104 mmol/L (98-107); Cholesterol 265 mg/dL (<200); Glucose 95 mg/dL (74-106); HDL Cholesterol 73 mg/dL (>or=50); Potassium 4.7 mmol/L (3.5-5.1); Sodium 139 mmol/L (136-145); Total Protein 7.5 g/dL (6.4-8.2); Triglyceride 79 mg/dL (<150); Vitamin B12 595 pg/mL (193-986)
[2024-12-22 12:37] LABS: Hepatitis C Ab w Rflx HCV PCR Negative (Negative)
== END 2024-12-21 02:16 | disposition home or self-care (01) ==
LOC: LBO 02:16
PROVIDERS: PCP Family Medicine; Visit Provider Family Medicine
DX: Z11.59 Encounter for screening for other viral diseases (principal); I10 Essential (primary) hypertension
CPT/HCPCS: 36415; 80053; 80061; 86803; 82607

== ENCOUNTER 2024-12-31 11:09 | Outpatient (REF) | payer MEDICARE, BC, SELFPAY ==
[2024-12-31 21:55] LABS: Bilirubin Negative (Negative); Blood Negative (Negative); Clarity Clear (Clear); Glucose Negative (Negative); Ketones Negative (Negative); Leukocyte Esterase Trace (Negative); Nitrite Negative (Negative); Specific Gravity 1.025 (1.005-1.025); Urobilinogen 0.2 mg/dL (Up to 0.2); pH 5.5 (5-8)
[2024-12-31 22:07] LABS: Bacteria Rare HPF (Negative); C & S Indicated? Yes; Casts Negative LPF (Negative); Crystals Negative HPF (Negative); Epithelial Cells Rare HPF (Negative); Mucus Negative (Negative); RBC Negative HPF (0-2)
[2025-01-02 12:30] LABS: Bacterial Vaginosis (BV) Negative (Negative); Candida glabrata Negative (Negative); Candida species group Negative (Negative); Trichomonas vaginalis Negative (Negative)
== END 2024-12-31 11:10 | disposition home or self-care (01) ==
LOC: LBN 11:09
PROVIDERS: PCP Family Medicine; Visit Provider Physician Assistant
DX: R30.0 Dysuria (principal)
CPT/HCPCS: 81513; 87077; 87481; 87661; 81003; 81015; 87086; 87186

== ENCOUNTER 2025-01-05 09:37 | Emergency (ER) | payer MEDICARE, BC, SELFPAY ==
[2025-01-05] VITALS (27 sets, daily range): BP systolic 112–178; BP diastolic 65–154; PULSE 55–70; RESP 12–30; TEMP 36.6; O2SAT 91–100
--- NOTE | 2025-01-05 09:30 | RT.EKG_ITS ---
APPROVED REPORT Exam: Resting ECG Reason for Exam: Left Sided Weakness Patient Location: E HR:61 bpm ECG Measurements Heart Rate 61 AXIS NJ 157 P 59 QRSd 82 QRS 33 QT 438 T 58 QTc 442 Conclusion Sinus rhythm...normal P axis, V-rate 60- 99
--- NOTE | 2025-01-05 09:50 | W.ED.GENAD ---
Discharge Plan Disposition Patient Disposition: Home Condition: Stable Discharge Details Clinical Impression: Arm paresthesia, left, Acute pyelonephritis Primary Care Provider: Lorraine Garcia ED Provider: Kenneth Joyce Home Meds and New Rx's Prescriptions: Continued celecoxib [Celebrex] 200 mg capsule 200 mg PO BID PRN (Reason: pain) Qty: 60 3RF Rx Instructions: Take one tablet twice daily for pain and inflammation atorvastatin 20 mg tablet 20 mg PO QPM Qty: 90 4RF acetaminophen 500 mg tablet 1,000 mg PO Q8H PRN Qty: 90 0RF Rx Instructions: Take two tablets up to every 8 hours as needed for pain docusate sodium [Colace] 100 mg capsule 100 mg PO BID PRN Discontinued melatonin 3 mg capsule 3 mg PO HS PRN hydrochlorothiazide 25 mg tablet 25 mg PO DAILY Qty: 90 4RF cefpodoxime 200 mg tablet 200 mg PO Q12H 7 Days Qty: 14 0RF Rx Instructions: must administer with a meal/food Discharge Instructions Instructions: Paresthesia (DC), Urinary Tract Infection, Adult ED Additional Instructions: MRI of your brain today did not reveal a stroke. You were seen today by a neurologist. Please follow-up with your primary care physician regarding arm numbness. Additional outpatient diagnostic testing including MRI of the cervical spine has been recommended by neurology. Please call your doctor today to arrange timely follow-up. Continue full course of antibiotic as prescribed. Your initial course was for 7 days. The course has been lengthened to 14 days. Please follow-up with your primary care physician. Return to the emergency department immediately for any worsening or new concerning symptoms. Referrals: Lorraine Garcia MD, DORIAN [Primary Care Provider] - Discharge Data Discharge Date/Time-TO BE ENTERED AT DEPARTURE: 01/05/25 16:20 HPI General Mode of arrival: ambulatory. Date/Time Provider Initiated Documentation: 01/05/25 09:45. Limitations to Documentation: no limitations. Information obtained by: patient, RN/MD and old records reviewed. HPI Narrative: HISTORY OF PRESENT ILLNESS 74-year-old female with hypertension, recently treated for pyelonephritis (E. coli, pansensitive) with Rocephin and cefpodoxime. Improved urinary symptoms but persistent left-sided back discomfort. New left arm pain, aching, and numbness started 2 days ago, associated with headache and mild fatigue. Sent to ED for further evaluation. Intermittent left-sided back pain and arm numbness since Friday. Usually lives an active lifestyle but feels lazy and unmotivated past few days. No numbness, fatigue, or weakness in legs or face, no visual changes. No neck, chest, abdominal, or pelvic pain, no gastrointestinal symptoms. Slight dizziness. . Related Data Home Medications ?Medication ?Instructions ?Recorded ?Confirmed acetaminophen 500 mg tablet 1,000 mg (2 x 500 mg) PO Q8H PRN 01/20/24 01/05/25 pain #90 tabs celecoxib 200 mg capsule (Celebrex) 200 mg PO BID PRN pain #60 caps 07/04/24 01/05/25 atorvastatin 20 mg tablet 20 mg PO QPM #90 tabs 12/22/24 01/05/25 docusate sodium 100 mg capsule 100 mg PO BID PRN 01/05/25 01/05/25 (Colace) Previous Rx's ?Medication ?Instructions ?Recorded acetaminophen 500 mg tablet 1,000 mg (2 x 500 mg) PO Q8H PRN 01/20/24 pain #90 tabs celecoxib 200 mg capsule (Celebrex) 200 mg PO BID PRN pain #60 caps 07/04/24 atorvastatin 20 mg tablet 20 mg PO QPM #90 tabs 12/22/24 Allergies Allergy/AdvReac Type Severity Reaction Status Date / Time No Known Allergies Allergy Verified 01/05/25 09:49 General Stated Complaint: [facility] PAULA: 3 Review of Systems All systems reviewed & are unremarkable except as noted in HPI and below Constitutional Constitutional: Denies fever(s) Cardiovascular Cardiovascular: Denies chest pain Exam Const General: cooperative and no acute distress [facility] Mouth: moist mucous membranes Eyes Conjunctivae: normal conjunctivae Sclera: normal sclerae EOM: EOM intact bilaterally Neck Neck: trachea midline and supple Resp Auscultation: clear to auscultation bilaterally, no rales, no rhonchi and no wheezes Cardio Rate: regular rate and not tachycardic Rhythm: regular rhythm GI Palpation: soft, not firm, no guarding, no masses, not rigid and nontender Skin General skin exam: no rashes or lesions noted Neuro General: patient alert, patient awake, patient oriented x3 and tone normal Cranial Nerves: CN's II-XI intact bilaterally Cognition: normal cognition Speech: speech normal Motor: strength 5/5 throughout Sensory Exam: other (Diminished sensation to light touch left upper extremity compared to right) Extrem General: no edema Psych Appearance: grossly normal Mental Status: mental status grossly normal Speech and Movement: speech and movement normal Course Vital Signs Vital signs: Vital Signs Temperature 36.6 C 01/05/25 09:42 Pulse 65 01/05/25 09:42 Respiratory Rate 16 01/05/25 09:42 Blood Pressure 112/90 01/05/25 09:42 Pulse Oximetry 98 01/05/25 09:42 Temperature 36.6 C 01/05/25 09:42 Temperature Source Temporal Artery Scan 01/05/25 09:42 Pulse 65 01/05/25 09:42 Respiratory Rate 16 01/05/25 09:42 Blood Pressure 112/90 01/05/25 09:42 Blood Pressure Position Supine 01/05/25 09:42 Pulse Oximetry 98 01/05/25 09:42 Oxygen Delivery Method Room Air 01/05/25 09:42 Oxygen Flow Rate 0 01/05/25 09:42 Pain Level 5 01/05/25 09:42 Medical Decision Making ASSESSMENT AND PLAN Initial Assessment: 74-year-old female with history of hypertension, recently treated for pyelonephritis, presenting with new left arm pain, numbness, headache, and mild fatigue. Patient is hemodynamically stable. Differential Diagnosis: - Stroke: Concern due to new onset left arm pain, aching, numbness, headache, and mild fatigue. Order CT brain. - Consider persistent pyelonephritis versus perinephric abscess or other abdominal issues: Persistent left-sided back discomfort post-pyelonephritis treatment. Order CT abdomen. ED Course: - Initial BP 178/154, normalized to 128/94 upon recheck. - EKG reviewed, results normal. - Blood work ordered. - CT of the abdomen pelvis was interpreted by radiology: 1. The kidneys show normal enhancement. No evidence of obstruction is seen. No perinephric fluid collection is identified. There is mild nonspecific stranding around the kidneys, left greater than right. A mild infectious/inflammatory process cannot be excluded. 2. Bilateral parapelvic cysts. No follow-up is recommended. - CT of the brain and neck with angiography was interpreted by radiology: 1. No large vessel occlusion or significant stenosis on the CT angiography of the head. 2. No acute intracranial process. 3. No occlusion or significant stenosis on the CT angiography of the neck. 4. 1 cm extra-axial lesion along the right frontal convexity most consistent with a meningioma. - Plan to proceed to MRI of the brain. - MRI of the brain was interpreted by radiology: 1. No evidence of an acute infarct. 2. 1 cm right parietal meningioma. - Teleneurology was consulted. I spoke with the neurologist who feels no emergent condition and recommends follow-up outpatient MRI of the neck. - Results and discharge plan were reviewed with the patient. Usual and customary discharge instructions were reviewed. Final Assessment: Patient presents with new left arm pain and numbness, headache, and mild fatigue, raising concern for stroke. Persistent left-sided back discomfort post-pyelonephritis. No emergent medical condition identified. Consider cervical radiculopathy. Likely incompletely treated pyelonephritis. Will increased duration antibiotic course. Clinical Impression: - Left arm pain and numbness - Persistent left-sided back discomfort - Pyelonephritis Disposition: Discharge home MDM Components Evaluation: - Number of Differential Diagnoses or Management Options: Stroke, Abscess or other abdominal issues. - Amount and Complexity of Data Reviewed: EKG, blood work, CT brain, CT abdomen. - Risk of Complication and Morbidity or Mortality: High due to potential stroke and persistent symptoms post-pyelonephritis. This document was written with the assistance of JOSE ROBERTO Riojas. The patient consented to its use. Lab Data Lab results reviewed: Yes I reviewed the patient's lab results. Labs: Laboratory Tests Range/Units 01/05/25 01/05/25 01/05/25 09:57 10:12 10:42 WBC (4.4-10.8) 10^3/uL 7.11 RBC (3.93-5.22) 10^6/uL 5.35 H Hgb (11.2-15.7) g/dL 16.0 H Hct (36.0-46.0) % 46.6 H MCV (80-95) fL 87 MCH (27.0-33.0) pg 29.9 MCHC (32.0-36.0) % 34.3 RDW (11.7-14.6) % 12.3 Plt Count (130-400) 10^3/uL 319 MPV (8.0-11.0) fL 9.1 Immature Gran % % 0.1 Neutrophils % % 60.5 Lymphocytes % % 30.8 Monocytes % % 6.9 Eosinophils % % 1.3 Basophils % % 0.4 Nucleated RBC % (0.0-0.3) % 0.0 Absolute Neutrophils (1.2-6.7) 10^3/uL 4.30 Absolute Lymphocytes (1.2-3.4) 10^3/uL 2.19 Absolute Monocytes (0.1-0.8) 10^3/uL 0.49 Absolute Eosinophils (0.0-0.7) 10^3/uL 0.09 Absolute Basophils (0.0-0.2) 10^3/uL 0.03 Sodium (136-145) mmol/L 139 Potassium (3.5-5.1) mmol/L 3.6 Chloride (98-107) mmol/L 103 Carbon Dioxide (21.0-32.0) mmol/L 29.7 Anion Gap (3-11) mmol/L 6.3 BUN (7-18) mg/dL 16 Creatinine (0.55-1.02) mg/dL 0.9 Est GFR (CKD-EPI 2020) (mL/min/1.73m2) 67.08 Glucose (74-106) mg/dL 99 Calcium (8.5-10.1) mg/dL 9.2 Magnesium (1.8-2.4) mg/dL 2.0 Total Bilirubin (0.2-1.0) mg/dL 0.9 AST (15-37) U/L 23 ALT (14-59) U/L 38 Alkaline Phosphatase (46-116) U/L 98 Troponin I (<or=51) ng/L 7 4 Total Protein (6.4-8.2) g/dL 7.8 Albumin (3.4-5.0) g/dL 4.4 Urine Color (Yellow) Yellow Urine Clarity (Clear) Clear Urine pH (5-8) 5.5 Ur Specific [place] (1.005-1.025) >= 1.030 H Urine Protein (Neg-Trace) mg/dL Negative Urine Ketones (Negative) mg/dL Negative Urine Blood (Negative) Negative Urine Nitrite (Negative) Negative Urine Bilirubin (Negative) Negative Urine Urobilinogen (Up to 0.2) mg/dL 0.2 Ur Leukocyte Esterase (Negative) Negative Urine Glucose (Negative) mg/dL Negative Range/Units 01/05/25 13:30 WBC (4.4-10.8) 10^3/uL RBC (3.93-5.22) 10^6/uL Hgb (11.2-15.7) g/dL Hct (36.0-46.0) % MCV (80-95) fL MCH (27.0-33.0) pg MCHC (32.0-36.0) % RDW (11.7-14.6) % Plt Count (130-400) 10^3/uL MPV (8.0-11.0) fL Immature Gran % % Neutrophils % % Lymphocytes % % Monocytes % % Eosinophils % % Basophils % % Nucleated RBC % (0.0-0.3) % Absolute Neutrophils (1.2-6.7) 10^3/uL Absolute Lymphocytes (1.2-3.4) 10^3/uL Absolute Monocytes (0.1-0.8) 10^3/uL Absolute Eosinophils (0.0-0.7) 10^3/uL Absolute Basophils (0.0-0.2) 10^3/uL Sodium (136-145) mmol/L Potassium (3.5-5.1) mmol/L Chloride (98-107) mmol/L Carbon Dioxide (21.0-32.0) mmol/L Anion Gap (3-11) mmol/L BUN (7-18) mg/dL Creatinine (0.55-1.02) mg/dL Est GFR (CKD-EPI 2020) (mL/min/1.73m2) Glucose (74-106) mg/dL Calcium (8.5-10.1) mg/dL Magnesium (1.8-2.4) mg/dL Total Bilirubin (0.2-1.0) mg/dL AST (15-37) U/L ALT (14-59) U/L Alkaline Phosphatase (46-116) U/L Troponin I (<or=51) ng/L 7 Total Protein (6.4-8.2) g/dL Albumin (3.4-5.0) g/dL Urine Color (Yellow) Urine Clarity (Clear) Urine pH (5-8) Ur Specific [place] (1.005-1.025) Urine Protein (Neg-Trace) mg/dL Urine Ketones (Negative) mg/dL Urine Blood (Negative) Urine Nitrite (Negative) Urine Bilirubin (Negative) Urine Urobilinogen (Up to 0.2) mg/dL Ur Leukocyte Esterase (Negative) Urine Glucose (Negative) mg/dL Quality:SDOH Health Related Social Needs: Health related social needs feeling lonely/isolated (Z60.8), education (Z55.6) PFSH All Active Problems (Updated 01/05/25 @ 15:46 by Kenneth Joyce MD) Acute pyelonephritis (Acute) Arm paresthesia, left (Acute) 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 (Acute) Osteopenia (Chronic 03/03/18) Essential hypertension (Chronic 03/03/18) Depression (Chronic) double venlafaxine Medical History Closed fracture of left proximal humerus (09/30/21) Impacted cerumen, bilateral Pelvic pain in female Rotator cuff tear, left Injection: 02/26/2021 Tendinitis of left rotator cuff Injection: 02/26/2021 Tendinitis of long head of biceps brachii of left shoulder Injection: 02/26/2021 Acute shoulder pain due to trauma Travel within last 14 days Family history of colon cancer Rectal polyp Family history of colon cancer Colonoscopy planned Sensorineural hearing loss of both ears Fibroma 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 Low back pain refer to pain clinic 5 days of prednisone Syncope Psoriasis Degeneration of lumbar intervertebral disc Cervical spondylosis Cervical radiculopathy Acute right-sided low back pain with right-sided sciatica (03/03/18) Acute right hip pain (03/03/18) Surgical History History of total right knee replacement (01/20/24) History of total left knee replacement (12/25/21) History of colonoscopy Status post arthroscopy of right shoulder (07/14/19) Debridement, acromioplasty, biceps tenotomy and distal clavicle excision History of foreign body in eye left, s/p excision History of laparoscopic cholecystectomy Hx of rotator cuff surgery left shoulder H/O medial meniscus repair of left knee Family History Mother , 81 Diabetes Renal failure Father , 54 [place] (myocardial infarction) ? 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 Pets and animals: No Sexually active: Yes Current gender identity: female What is your relationship status?: How often do you talk on the phone with friends or family?: three or more times per week How often do you get together with friends or relatives?: three or more times per week How often do you attend spiritism or scientology services?: decline to answer Do you belong to any clubs or organized social groups?: yes Panel score (0-1 are the most socially isolated patients): 3 What type of physical activity do you participate in: walking, bicycling and swimming Duration: 30-45 minutes/day Frequency: 3-4 times per week Dana/Tenriism: Taoism Special dana needs: No Seatbelt use: always Helmet use: Yes Helmet use: always Drive intox or ride w/intox armor reconnaissance vehicle driver: No Do you feel safe at home: Yes Do you feel safe in your relationship?: Yes
--- NOTE | 2025-01-05 10:00 | DI.CT_ITS ---
Exam(s) CT ABDOMEN PELVIS W EXAM: CT ABDOMEN PELVIS W CLINICAL HISTORY: left flank pain, pyelo not resolved on abx TECHNIQUE: Imaging Protocol: Axial computed tomography images with coronal and sagittal reformatted images were created and reviewed. CONTRAST MATERIAL: Intravenous: Omnipaque 350 Contrast volume:80 mL Oral: No COMPARISON: No exams were available for comparison FINDINGS: ABDOMEN: Lung Bases: No acute abnormality. Liver: Normal density. No measurable mass. Portal, Superior Mesenteric, and Splenic Veins: Unremarkable. Gallbladder and Biliary Tract: Status post cholecystectomy. No biliary ductal dilatation. Pancreas: Normal density, no abnormal calcifications or inflammatory process. Spleen: Normal. Adrenals: No masses seen. Kidneys: Normal size, contour and axis. No radiodense stones or obstructive uropathy. No masses seen. There is normal and symmetric enhancement of the kidneys. Bilateral parapelvic cysts are present. No follow-up is recommended. Abdominal Aorta: Abdominal portion non-dilated. Atherosclerotic calcification is present. Bowel: No obstruction or bowel wall thickening. Appendix is unremarkable. Peritoneal Cavity: No ascites, collection or mesenteric inflammatory response. No free air. Lymph Nodes: Within normal limits. Bones: Within normal limits for the patient's age. Soft Tissues: Unremarkable. PELVIS: Bladder: Symmetric distention, no gross wall thickening. Reproductive Organs: Unremarkable as visualized. Lymph Nodes: Within normal limits. Bones: Within normal limits for the patient's age. IMPRESSION: 1. The kidneys show normal enhancement. No evidence of obstruction is seen. No perinephric fluid co llection is identified. There is mild nonspecific stranding around the kidneys, left greater than ri ght. A mild infectious/inflammatory process cannot be excluded. 2. Bilateral parapelvic cysts. No follow-up is recommended. RADIATION DOSE DELIVERED: 2,569.06mGy.cm Total DLP DATA REPOSITORY: All CT scans at this facility are submitted to the National Radiology Data Registry (NRDR) Dose Index Registry (DIR) with the [employer] (ACR). RADIATION OPTIMIZATION: All CT scans at this facility use at least one of these dose optimization te chniques: automated exposure control; mA and/or kV adjustment per patient size (includes targeted exa ms where dose is matched to clinical indication); or iterative reconstruction.
[2025-01-05 10:03] LABS: Abs Immature Grans 0.01 10^3/uL (0.0-0.06); Absolute Basophil Count 0.03 10^3/uL (0.0-0.2); Absolute Eosinophil Count 0.09 10^3/uL (0.0-0.7); Absolute Lymphocyte Count 2.19 10^3/uL (1.2-3.4); Absolute Monocyte Count 0.49 10^3/uL (0.1-0.8); Basophils % 0.4 %; Eosinophils % 1.3 %; HCT 46.6 % (36.0-46.0); Immature Grans % 0.1 %; Lymphocytes % 30.8 %; MCH 29.9 pg (27.0-33.0); MCHC 34.3 % (32.0-36.0); MCV 87 fL (80-95); MPV 9.1 fL (8.0-11.0); Monocytes % 6.9 %; Neutrophils % 60.5 %; Platelet Count 319 10^3/uL (130-400); RBC 5.35 10^6/uL (3.93-5.22); RDW 12.3 % (11.7-14.6); WBC 7.11 10^3/uL (4.4-10.8)
--- NOTE | 2025-01-05 10:12 | DI.CT_ITS ---
Exam(s) CT BRAIN NECK CTA EXAM: CT BRAIN NECK CTA CLINICAL HISTORY: left arm numbness, [place]. TECHNIQUE: Imaging Protocol: Axial CT angiography was performed with multi-slice acquisition and mu lti-planar and/or 3D reconstructions. CONTRAST MATERIAL: Intravenous: Omnipaque 350 contrast volume:80 mL COMPARISON: No exams were available for comparison FINDINGS: CT Head W/O and W: Ventricles and Extra axial spaces: Normal in size and morphology for the patient's age. Hemorrhage: None. Cerebral parenchyma: There is no evidence of an acute territorial infarct. No mass effect is identif ied. Midline shift: None. Brainstem/Cerebellum: Normal. Calvarium: Normal. Visualized Paranasal sinuses/Mastoids: Clear. Soft Tissues: Unremarkable. Enhancement: There is a partially calcified enhancing extra-axial lesion along the right frontal conv exity measuring 1 cm most consistent with a meningioma. CTA Neck W: Common Carotid: Right: No dissection, occlusion or significant stenosis. Left: No dissection, occlusion or significant stenosis. External Carotid: Right: No occlusion or significant stenosis. Left: No occlusion or significant stenosis. Internal Carotid: Right: No dissection, occlusion or significant stenosis. Left: No dissection, occlusion or significant stenosis. Vertebral Artery: Right: No dissection, occlusion or significant stenosis. Left: No dissection, occlusion or significant stenosis. Lung Apices: Normal. Bones: Within normal limits for the patient's age. Soft Tissues: Normal. Thyroid gland: Unremarkable. CTA Brain W: Internal Carotid Arteries: No aneurysm, occlusion or significant stenosis. Anterior Cerebral Arteries: Right: No aneurysm, occlusion or significant stenosis. Left: No aneurysm, occlusion or significant stenosis. Middle Cerebral Arteries: Right: No aneurysm, occlusion or significant stenosis. Left: No aneurysm, occlusion or significant stenosis. Posterior Cerebral Arteries: Right: No aneurysm, occlusion or significant stenosis. Left: No aneurysm, occlusion or significant stenosis. Vertebral Arteries: Right: No aneurysm, occlusion or significant stenosis. Left: No aneurysm, occlusion or significant stenosis. Basilar Artery: No aneurysm, occlusion or significant stenosis. IMPRESSION: 1. No large vessel occlusion or significant stenosis on the CT angiography of the head. 2. No acute intracranial process. 3. No occlusion or significant stenosis on the CT angiography of the neck. 4. 1 cm extra-axial lesion along the right frontal convexity most consistent with a meningioma. RADIATION DOSE DELIVERED: 2,569.06mGy.cm Total DLP DATA REPOSITORY: All CT scans at this facility are submitted to the National Radiology Data Registry (NRDR) Dose Index Registry (DIR) with the [employer] (ACR). RADIATION OPTIMIZATION: All CT scans at this facility use at least one of these dose optimization te chniques: automated exposure control; mA and/or kV adjustment per patient size (includes targeted exa ms where dose is matched to clinical indication); or iterative reconstruction.
[2025-01-05 10:17] LABS: Bilirubin Negative (Negative); Blood Negative (Negative); Clarity Clear (Clear); Glucose Negative (Negative); Ketones Negative (Negative); Leukocyte Esterase Negative (Negative); Nitrite Negative (Negative); Specific Gravity >= 1.030 (1.005-1.025); Urobilinogen 0.2 mg/dL (Up to 0.2); pH 5.5 (5-8)
[2025-01-05 10:28] LABS: ALT 38 U/L (14-59); AST 23 U/L (15-37); Albumin 4.4 g/dL (3.4-5.0); Alkaline Phosphatase 98 U/L (46-116); Anion Gap 6.3 mmol/L (3-11); BUN 16 mg/dL (7-18); Bilirubin, Total 0.9 mg/dL (0.2-1.0); CO2 29.7 mmol/L (21.0-32.0); CREATININE 0.9 mg/dL (0.55-1.02); Calcium 9.2 mg/dL (8.5-10.1); Chloride 103 mmol/L (98-107); Estimated GFR 67.08 (mL/min/1.73m2); Glucose 99 mg/dL (74-106); Potassium 3.6 mmol/L (3.5-5.1); Sodium 139 mmol/L (136-145); Total Protein 7.8 g/dL (6.4-8.2); Troponin I 7 ng/L (<or=51)
[2025-01-05 11:15] LABS: Troponin I 4 ng/L (<or=51)
[2025-01-05] MEDS: Omnipaque 350 MG/ML 100 ML BTL 80 ML IJ (11:15)
[2025-01-05] MEDS: Normal Saline - Diluent 50 ML VIAL IJ (11:16)
--- NOTE | 2025-01-05 12:30 | DI.MRI_ITS ---
Exam(s) MR BRAIN WO EXAM: MR BRAIN WO CLINICAL HISTORY: left arm numbness TECHNIQUE: Multiplanar multisequence MRI of the brain was performed. COMPARISON: MR MR IAC BRAIN WO/W from 12/20/[address] BRAIN NECK CTA from 01/05/2025 FINDINGS: VENTRICLES AND EXTRA AXIAL SPACES: Normal in size and morphology for the patient's age. MIDLINE SHIFT: None. CEREBRAL PARENCHYMA: No focus of restricted diffusion to suggest acute infarct. No space-occupying le chinyere identified. There are few scattered areas of hyperintense signal seen on the FLAIR and T2 weight ed images in the white matter most consistent with chronic microvascular ischemic disease. HEMORRHAGE: None. BRAINSTEM/CEREBELLUM: Normal. CALVARIUM: Normal. VISUALIZED PARANASAL SINUSES/MASTOIDS:Clear. [place]: Normal flow void. PITUITARY GLAND: Unremarkable. OTHER FINDINGS: There is again seen a 1 cm extra-axial mass along the right parietal bone most consis tent with a meningioma. IMPRESSION: 1. No evidence of an acute infarct. 2. 1 cm right parietal meningioma. DATA REPOSITORY:
[2025-01-05 14:04] LABS: Troponin I 7 ng/L (<or=51)
== END 2025-01-05 16:20 | disposition home or self-care (01) ==
PROVIDERS: Emergency Provider Student in an Organized Health Care Education/Training Program; PCP Family Medicine
DX: R20.2 Paresthesia of skin (principal); N10 Acute pyelonephritis; D32.0 Benign neoplasm of cerebral meninges; I10 Essential (primary) hypertension
CPT/HCPCS: 70496; 70498; 80053; 93005; 99285; 70551; 74177; 81003; 83735; 84484; 85025; 93010; J3490

== ENCOUNTER 2025-01-14 00:25 | Outpatient (CLI) | payer MEDICARE, BC, SELFPAY ==
--- NOTE | 2025-01-14 09:45 | DI.RAD_ITS ---
Exam(s) XR CERVICAL SPINE COMP 4-5V EXAM: XR CERVICAL SPINE COMP 4-5V CLINICAL HISTORY: neck pain with radiation,cervical radicular pain,m54.12. TECHNIQUE: 2D digital imaging was performed. COMPARISON: No exams were available for comparison FINDINGS: Five views No evidence of fracture, listhesis, nor offset of the spinal laminar line. No significant disc space narrowing but there is multilevel facet arthropathy noted throughout the cervical spine. There are no cervical ribs. Oblique views reveal no prominent Luschka joint osteophytes and relatively patent neural foramina bilaterally without significant osteoarthritic encroachment. Posteriorly there is so me calcification noted in the supraspinous ligament.. IMPRESSION: Multilevel facet arthropathy No significant disc space narrowing. DATA REPOSITORY: RADIATION DOSE DELIVERED:
== END 2025-01-14 00:45 ==
LOC: DI 00:25
PROVIDERS: PCP Family Medicine; Visit Provider Family Medicine
DX: M54.12 Radiculopathy, cervical region (principal)
CPT/HCPCS: 72050

== ENCOUNTER 2025-01-31 09:48 | Outpatient (CLI) | payer MEDICARE, BC, SELFPAY ==
--- NOTE | 2025-01-31 08:45 | DI.RAD_ITS ---
Exam(s) XR KNEE RT 2V AP,LAT EXAM: XR KNEE RT 2V AP,LAT CLINICAL HISTORY: ANNUAL F/U R TKA. TECHNIQUE: 2D digital imaging was performed. Two images were obtained. AP and lateral views were obtained. COMPARISON: CR XR KNEE RT 1V from 01/30/2024 FINDINGS: BONES: There are stable post operative changes of a right total knee arthroplasty present. No fracture or dislocation. JOINTS: The orthopedic hardware is in good position. No evidence of hardware loosening. There is a small joint effusion. SOFT TISSUE: Normal. IMPRESSION: Stable right total knee arthroplasty. DATA REPOSITORY: RADIATION DOSE DELIVERED:
== END 2025-01-31 09:49 | disposition home or self-care (01) ==
LOC: DIORS 09:48
PROVIDERS: PCP Family Medicine; Visit Provider Physician Assistant
DX: T84.82XA Fibrosis due to internal orthopedic prosthetic devices, implants and grafts, initial encounter (principal); Z96.651 Presence of right artificial knee joint
CPT/HCPCS: 99214; 73560

== ENCOUNTER 2025-02-09 11:03 | Day surgery (SDC) | payer MEDICARE, BC, SELFPAY ==
[2025-02-09] VITALS (24 sets, daily range): BP systolic 127–150; BP diastolic 52–90; PULSE 51–64; RESP 10–19; TEMP 36.3–37; O2SAT 91–98; BMI 27.4
--- NOTE | 2025-02-09 11:34 | W.ANESPRE ---
General Info Date of Service Date Performed: 02/09/25 Height: 5 ft 3 in Weight: 70.307 kg Body Mass Index (BMI): 27.4 Surgical Procedure: Operation Date: 02/09/25 13:40 Proposed Procedure Side Surgeon p Knee Arthroscopy Synovectomy Right Joey Esteban MD Meds Allergies and Home Medications Allergies Allergy/AdvReac Type Severity Reaction Status Date / Time No Known Allergies Allergy Verified 02/09/25 11:35 Home Medication ?Medication ?Instructions ?Recorded celecoxib 200 mg capsule (Celebrex) 200 mg PO BID PRN pain #60 caps 07/04/24 atorvastatin 20 mg tablet 20 mg PO QPM #90 tabs 12/22/24 docusate sodium 100 mg capsule 100 mg PO BID PRN 01/05/25 (Colace) acetaminophen 500 mg tablet 1,000 mg (2 x 500 mg) PO TID #90 02/09/25 tabs tramadol 50 mg tablet 50 mg PO Q8H PRN #6 tabs 02/09/25 Current Visit Medications: Current Medications Generic Name Dose Route Start Last Admin Trade Name Joaoq PRN Reason Stop Dose Admin Acetaminophen 1,000 mg 02/09/25 06:00 Acetaminophen 500 Mg Tab PO 02/09/25 23:59 PREOP AALIYAH Celecoxib 400 mg 02/09/25 06:00 Celecoxib 200 Mg Cap PO 02/09/25 23:59 PREOP AALIYAH Ringer's Solution 1,000 mls @ 80 mls/hr 02/09/25 06:00 IV 02/09/25 23:59 INFUSION AALIYAH Cefazolin Sodium/Dextrose 2 gm in 50 mls @ 100 mls/hr 02/09/25 06:00 Ancef Duplex IVPB 02/09/25 23:59 PREOP AALIYAH Tranexamic Acid/Sodium Chloride 1,000 mg in 100 mls @ 600 mls/hr 02/09/25 06:00 IVPB 02/09/25 23:59 PREOP AALIYAH IV Miscellaneous Supplies 1 each 02/09/25 06:00 Iv Access IV 02/09/25 23:59 DIRECTED AALIYAH Sodium Chloride 0 ml 02/09/25 06:00 Normal Saline Flush 10 Ml Syr IV 02/09/25 23:59 PRN PRN Sodium Chloride 0 ml 02/09/25 06:00 Normal Saline 10 Ml Vial IJ 02/09/25 23:59 DIRECTED PRN Sterile Water 0 ml 02/09/25 06:00 Water,Injection,Sterile 10 Ml Vial IJ 02/09/25 23:59 DIRECTED PRN PFSH Active Problems Active Problems: Problem Status Onset Code Arthrofibrosis of total knee arthroplasty Acute T84.82XA Cervical radicular pain Acute M54.12 Impairment of speech discrimination Acute H93.299 Asymmetrical sensorineural hearing loss Acute H90.3 Osteopenia Chronic 03/03/18 M85.80 Essential hypertension Chronic 03/03/18 I10 Depression Chronic F32.9 Medical History Medical History Closed fracture of left proximal humerus (09/30/21) Impacted cerumen, bilateral Pelvic pain in female Rotator cuff tear, left Injection: 02/26/2021 Tendinitis of left rotator cuff Injection: 02/26/2021 Tendinitis of long head of biceps brachii of left shoulder Injection: 02/26/2021 Acute shoulder pain due to trauma Travel within last 14 days Family history of colon cancer Rectal polyp Family history of colon cancer Colonoscopy planned Sensorineural hearing loss of both ears Fibroma 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 Low back pain refer to pain clinic 5 days of prednisone Syncope Psoriasis Degeneration of lumbar intervertebral disc Cervical spondylosis Cervical radiculopathy Acute right-sided low back pain with right-sided sciatica (03/03/18) Acute right hip pain (03/03/18) Surgical History Surgical History History of total right knee replacement (01/20/24) History of total left knee replacement (12/25/21) History of colonoscopy Status post arthroscopy of right shoulder (07/14/19) Debridement, acromioplasty, biceps tenotomy and distal clavicle excision History of foreign body in eye left, s/p excision History of laparoscopic cholecystectomy Hx of rotator cuff surgery left shoulder H/O medial meniscus repair of left knee Tobacco Smoking/Tobacco Use Status: Never Passive smoking exposure: Yes Second hand exposure: Yes Alcohol Alcohol Intake: current Alcohol intake frequency: a few times a month Alcohol type: wine Substance Use Substance use: Never Substance use type: does not use Vital Signs and Lab Results Vital Signs Most Recent Vital Signs in EMR: Temp Pulse Resp BP Pulse Ox 36.6 C 64 18 141/84 H 96 02/09/25 11:25 02/09/25 11:25 02/09/25 11:25 02/09/25 11:25 02/09/25 11:25 Imaging and Studies Imaging and Studies Study information below may be from another EMR and interpreted by another provider. Please see original notes in EMR for more complete details. EKG Summary: EKG PATIENT NAME: Trena Leone UNIT #: [id number] ORDERING PROVIDER: Kenneth Joyce M.D. PRIMARY CARE PROVIDER: LITO SANCHEZ MD, DC DATE/TIME OF SERVICE: 01/05/2544 : 1950 PERFORMING LOCATION: ER APPROVED REPORT Exam: Resting ECG Reason for Exam: Left Sided Weakness Patient Location: E HR:61 bpm ECG Measurements Heart Rate 61 AXIS GA 157 P 59 QRSd 82 QRS 33 QT 438 T58 QTc 442 Conclusion Sinus rhythm...normal P axis, V-rate 60- 99 <Electronically signed by KENNETH JOYCE MD in [facility]> E-Sign Date: 01/05/25 E-Sign Time: 1647 ADDENDUM APPROVED REPORT Exam: Resting ECG Reason for Exam: Left Sided Weakness Patient Location: E HR:61 bpm ECG Measurements Heart Rate 61 AXIS GA 157 P 59 QRSd 82 QRS 33 QT 438 T58 QTc 442 Conclusion Sinus rhythm...normal P axis, V-rate 60- 99 I have reviewed and interpreted ECG and agree with software generated interpretation. Electronically signed by: <Electronically signed by Michelle Layne M.D. in [facility]> 01/06/25 0838 Cosigned by: Anesthesia Assessment and Plan Anesthesia History Personal History: No History of Anesthesia Complications Family History: No Family History of Anesthesia Complications Exercise Tolerance Exercise Tolerance: Metabolic Equivalents>4 Pertinent Negatives Pertinent Negatives: No Symptoms of GERD, No Major Cardiovascular Symptoms or Complaints, No Major Pulmonary Symptoms or Complaints and No History of CVA/TIA Cardiac & Pulmonary Exam Cardiac Exam: Normal S1/S2 Heart Sounds Pulmonary Exam: Clear Bilateral Breath Sounds Implantable Cardiac Device Does patient have a Pacemaker or an ICD?: No Airway Exam Known Difficult Airway: No Mallampati Class: 1 Mouth Opening: Normal (> 3cm) Thyromental Distance: Greater than 3 cm Neck Range of Motion: Full ROM Neck Circumference: Normal Teeth Condition: Normal Dentition ASA Classification ASA Score: ASA 2 Emergency Case?: No NPO Status NPO Status: NPO Clears >2 hours, Solids >8 hours Anesthesia Plan Resuscitation Status: Full Code Anesthesia Technique: General Anesthesia Airway Planned: LMA Pain Management: Surgeon and patient request nerve block Monitors Used: Standard Monitors Preoperative Comments:: 74 yo female for knee scope. Sig PMHx: HTN, cervical radicular, depression. Patient denies cervical radiculopathy: reports pinched nerve in left shoulder. Previous Anes: - TKA x 2, spinal, prop sedation, no issues. - colo, prop, natural airway, no issues. - shoulder scope, LMA 3, no issues.
[2025-02-09] MEDS: Lactated Ringers 1,000 ML 80 ML IV (11:51)
[2025-02-09] MEDS: Celecoxib 200 MG CAP 400 MG PO (11:52)
[2025-02-09] MEDS: Acetaminophen 500 MG TAB 1000 MG PO (11:52)
--- NOTE | 2025-02-09 12:06 | W.PM.DSUDISC ---
Date of service: 02/09/25 Discharge Plan Disposition Patient Disposition: Home Condition: Good Discharge Details Reason For Visit: R knee athroscopy Attending Provider: Joey Esteban Primary Care Provider: Lorraine Garcia Home Meds and New Rx's Prescriptions: New acetaminophen 500 mg tablet 1,000 mg PO TID Qty: 90 0RF tramadol 50 mg tablet 50 mg PO Q8H PRNQty: 6 0RF Continued celecoxib [Celebrex] 200 mg capsule 200 mg PO BID PRN (Reason: pain) Qty: 60 3RF Rx Instructions: Take one tablet twice daily for pain and inflammation atorvastatin 20 mg tablet 20 mg PO QPM Qty: 90 4RF docusate sodium [Colace] 100 mg capsule 100 mg PO BID PRN Discharge Instructions Additional Instructions: Knee Manipulation Discharge Instructions Activity: You should begin moving as soon as possible. You may work on flexion but also equally maintain extension. You may bear weight as tolerated, using crutches only for support/comfort. You should apply ice to help with swelling and elevate when possible (especially in the first few days). Dressings: The knee dressing may come down after 72 hours. You may shower and get the wound wet at that time. You may keep the wounds covered with a bandaid until follow-up. Medications: - Recommend to take up to 1000mg of Acetaminophen (Tylenol) every 8 hours as needed and your Celebrex every 12 hours as needed needed. - You have been prescribed tramadol for breakthrough pain. Follow-up: 7-10 days Referrals: Joey Esteban MD [ [facility] STAFF PHYSICIAN, Orthopaedic Surgical] Equipment/Supplies: Partial Weight Bearing Crutches Activity:: Activity as Tolerated Remove Dressings/Wound Care:: 72 hours Shower/Bathe:: 72 hours Diet:: As Tolerated Discharge Orders Discharge Orders: Discharge Order (Routine); Ordered 02/09/25 Ordered By: Tushar Kaba DS: Diagnosis Discharge Diagnosis (1) Arthrofibrosis of total knee arthroplasty: Status: Acute
[2025-02-09] MEDS: ceFAZolin 2 GM/50 ML BAG IVPB (12:46)
[2025-02-09] MEDS: TRANEXAMIC ACID/SOD. CHL. 1,000 MG/100 ML BAG 600 MG IVPB (12:52)
[2025-02-09] MEDS: Bupivacaine 0.25% Pres-Free 30 ML VIAL (12:55)
[2025-02-09] MEDS: EPINEPHrine 10 MG/10 ML ML (12:56)
--- NOTE | 2025-02-09 13:42 | ROE_ITS ---
Operative Note Operative Note PRE-OP DIAGNOSIS: Arthrofibrosis of Knee Replacement - Right Knee POST-OP DIAGNOSIS: same PROCEDURE: Arthroscopic Synovectomy of 3 Compartments with Manipulation - RIGHT Knee SURGEON: Joey Esteban ANESTHESIA TYPE: General LMA/ETT Refer to Anesthesia Record ESTIMATED BLOOD LOSS: 0 PATHOLOGY: none sent COMPLICATIONS: None Patient was transported to: PACU Patient's condition: stable Indications: I have seen Trena in clinic for symptoms of arthrofibrosis of the knee following knee replacement surgery. Nonoperative measures were exhausted but disability due to lack of motion persisted. I discussed knee arthroscopy with synovectomy with maniuplation with the patient. I reviewed the risks of the procedure to include, but not limited to, bleeding, infection, pain, continued stiffness, recurrence, blood clot. Despite these risks, the patient elected to proceed. Findings: Preoperative Range of Motion: Flexion: 105 Extension:5 Postoperative Range of Motion: Flexion:130 Extension:5 Procedure Description: Trena was greeted in the preoperative holding area where the correct side was identified and marked. The consent was reviewed with the patient and signed. The history and physical was updated. All questions were answered. She was taken back to the operating room. The patient was placed into the supine position on the operating room table. All bony prominences were well padded. Prophylactic antibiotics in the form of Cefazolin were administered. Preoperative range of motion was assessed as 5 - 105. The RIGHT leg was then prepped with Chloraprep and draped in a standard fashion with stockinette and extremity drape. A timeout to confirm correct identity, side and site, procedure, allergies, anesthesia, and medical concerns was performed. The leg was placed into a pneumatic leg mandel, SPIDER2. A standard lateral p ortal was made at the lateral border of the patella tendon in line with the inferior pole of the patella, soft spot. The skin and deep tissue was incised sharply and the blunt trochar was inserted atraumatically. At this point had visualization of the femoral component. A superolateral portal was then established with spinal needle localization just superior and lateral to the patella. A knife was taken down through the skin and soft tissue to enter the knee joint. Starting in the superior compartment above the femoral component and anterior to the femur I released all scarring between the anterior femoral synovium and the overlying extensor mechanism. This was taken through all of any noticeable scar tissue until the superior patellar pouch was fully released and mobile. This resection was carried out mostly with electrocautery as well as shaver. Once this was released fully from lateral to medial superiorly I then continue working down the lateral gutter. All scar tissue in the lateral gutter was released so there is normal space and movement between the capsular tissues and the edge of the femoral component and femur. This was taken down through the lateral gutter such that I was able to identify the polyethylene to its posterior corner. Once again, all scar tissue in this area was resected so the polyethylene was easily visible and there is no interposed tissue in the back or the polyethylene was identified. I think continue to work anteriorly. To continue the synovectomy from the lateral compartment to the anterior compartment into the medial compartment, I placed a medial portal under spinal needle localization. Once this was in place it became another working portal and I continued the synovectomy through the anterior compartment to the medial compartment. Once again, I freed up the medial gutter so I was able to visualize the polyethylene from the anterior posterior margins. There is no interposed tissue after full synovectomy was performed. Adhesions between the capsule and the femur were released. This was continued up the medial gutter until it met up with the releases performed previously in the superior compartment. Any remnant scar tissue from around the patella was then removed with a shaver and electrocautery. The arthroscope was brought back into the suprapatellar pouch and the leg was in full extension. The knee was thoroughly irrigated with the arthroscopic fluid on high flow and pressure. Inflow was stopped and excess fluid was removed. A manipulation was performed and without any significant effort the knee flexed to 130 degrees. I then worked the knee into extension, slowly applying an anterior to posterior directed pressure with support of the knee and no significant lever arm. This was cycled multiple times until I was able to obtain extension of 5 degrees. The wounds were closed with 4-0 Nylon. 0.25% bupivacaine was injected around the portal sites and into the knee. The wounds were dressed with Xeroform, 4x4 gauze, ABD pad, Kerlix and an DONNA wrap. A cryo-cuff was applied. The patient tolerated the procedure well and was returned to the Same Day Surgery area in a stable condition suffering no known complication.. Date of Procedure: 02/09/25
[2025-02-09] MEDS: fentaNYL 100 MCG/2 ML VIAL IVP (13:52)
--- NOTE | 2025-02-09 13:58 | W.ANESPOSTOP ---
Postoperative Evaluation Date, Time and Location Date Performed: 02/09/25 Time Performed: 13:58 Patient Location: PACU Vital Signs Most Recent Imported Vital Signs: Most Recent Vital Signs Temp Pulse Resp BP Pulse Ox 36.4 C L 64 18 141/84 H 96 02/09/25 13:43 02/09/25 11:25 02/09/25 11:25 02/09/25 11:25 02/09/25 11:25 Pain Score Most Recent Pain Score: Most Recent Pain Score Pain Level 4 02/09/25 13:43 Assessment Mental Status: Arousable with meaningful communication Airway and Respiratory Function: Patent airway with normal (patient baseline) respiratory exam Cardiovascular Function: Hemodynamically Stable Hydration Status: Adequately Hydrated Nausea & Vomiting: No Nausea or Vomiting Pain: Pain is tolerable per patient Peripheral Nerve Block: Patient did not receive a nerve block
[2025-02-09] MEDS: traMADol 50 MG TAB PO (14:44)
== END 2025-02-09 15:32 | disposition home or self-care (01) ==
PROVIDERS: PCP Family Medicine; Visit Provider Student in an Organized Health Care Education/Training Program
PROC: (CPT 29870; principal; 2025-02-09 13:30)
DX: T84.82XA Fibrosis due to internal orthopedic prosthetic devices, implants and grafts, initial encounter (principal)
CPT/HCPCS: 29876; J0665; J0690; J1100; J2003; J2405; J2704; J3010

== ENCOUNTER → 2025-02-21 08:34 | Outpatient (BNVA) | payer MEDICARE, BC, SELFPAY | PROVIDERS: PCP Family Medicine; Referring Provider Family Medicine; Visit Provider Student in an Organized Health Care Education/Training Program | DX: T84.82XA Fibrosis due to internal orthopedic prosthetic devices, implants and grafts, initial encounter (principal) | CPT/HCPCS: 99024 ==

== ENCOUNTER 2025-03-09 10:19 | Outpatient (CLI) | payer MEDICARE, BC, SELFPAY ==
--- NOTE | 2025-03-09 10:05 | DI.RAD_ITS ---
Exam(s) XR CHEST 2V PA LATERAL EXAM: XR CHEST 2V PA LATERAL CLINICAL HISTORY: COUGH R05.9 TECHNIQUE: 2D digital imaging was performed of the chest. Two images were obtained. PA and lateral views were obtained. COMPARISON: No exams were available for comparison FINDINGS: MEDIASTINUM: Normal. HEART: Normal. PULMONARY VASCULATURE: Normal. LUNGS: Clear. PLEURAL SPACE: No pleural effusion or pneumothorax. BONE:Within normal limits for the patient's age. OTHER FINDINGS:Normal. IMPRESSION: No acute pulmonary findings. DATA REPOSITORY: RADIATION DOSE DELIVERED:
== END 2025-03-09 10:39 ==
LOC: DI 10:19
PROVIDERS: PCP Family Medicine; Visit Provider Physician Assistant Medical
DX: R05.9 Cough, unspecified (principal)
CPT/HCPCS: 71046

== ENCOUNTER → 2025-06-23 13:01 | Outpatient (BNVA) | payer MEDICARE, BC, SELFPAY | PROVIDERS: PCP Family Medicine; Referring Provider Family Medicine; Visit Provider Physical Therapy Assistant | DX: Z12.11 Encounter for screening for malignant neoplasm of colon (principal); Z86.0102 Personal history of hyperplastic colon polyps; Z80.0 Family history of malignant neoplasm of digestive organs | CPT/HCPCS: S0285 ==

== ENCOUNTER 2025-06-27 09:11 | Day surgery (SDC) | payer MEDICARE, BC, SELFPAY ==
[2025-06-27 09:35] VITALS: BP 144/99; PULSE 72; RESP 16; TEMP 36.4; O2SAT 100
[2025-06-27] MEDS: Lactated Ringers 1,000 ML 80 ML IV (09:54)
--- NOTE | 2025-06-27 10:17 | W.ANESPRE ---
General Info Date of Service Date Performed: 06/27/25 Height: 5 ft 3 in Weight: 74.441 kg Body Mass Index (BMI): 29.0 Surgical Procedure: Operation Date: 06/27/25 10:20 Proposed Procedure Side Surgeon p Colonoscopy Nina Lamb MD Meds Allergies and Home Medications Allergies Allergy/AdvReac Type Severity Reaction Status Date / Time No Known Allergies Allergy Verified 06/23/25 14:46 Home Medication Medication Instructions Recorded atorvastatin 20 mg tablet 20 mg PO QPM #90 tabs 12/22/24 docusate sodium 100 mg capsule 100 mg PO BID PRN 01/05/25 (Colace) acetaminophen 500 mg tablet 1,000 mg (2 x 500 mg) PO TID #90 02/09/25 tabs albuterol sulfate 90 mcg/actuation 2 puff inhalation DIRECTED 03/15/25 aerosol inhaler bisacodyl 5 mg tablet,delayed 5 mg PO ONCE Colonoscopy Bowel 06/23/25 release Prep #4 tabs hydrochlorothiazide 25 mg tablet 25 mg PO QAM 06/23/25 polyethylene glycol 3350 17 238 g PO ONCE #238 grams 06/23/25 gram/dose oral powder Current Visit Medications: Current Medications Generic Name Dose Route Start Last Admin Trade Name Freq PRN Reason Stop Dose Admin Ringer's Solution 1,000 mls @ 80 mls/hr 06/27/25 06:00 06/27/25 09:54 IV 06/27/25 23:59 80 mls/hr INFUSION AALIYAH Administration IV Miscellaneous Supplies 1 each 06/27/25 06:00 Iv Access IV 06/27/25 23:59 DIRECTED AALIYAH Sodium Biphosphate/Sodium Phosphate 133 ml 06/27/25 06:00 Na Phosphate Enema-Adult 133 Ml Btl OK 06/27/25 23:59 DIRECTED PRN Sodium Chloride 0 ml 06/27/25 06:00 Normal Saline Flush 10 Ml Syr IV 06/27/25 23:59 PRN PRN Sodium Chloride 0 ml 06/27/25 06:00 Normal Saline 10 Ml Vial IJ 06/27/25 23:59 DIRECTED PRN Sterile Water 0 ml 06/27/25 06:00 Water,Injection,Sterile 10 Ml Vial IJ 06/27/25 23:59 DIRECTED PRN PFSH Active Problems Active Problems: Problem Status Onset Code Cervical radicular pain Acute M54.12 Impairment of speech discrimination Acute H93.299 Asymmetrical sensorineural hearing loss Acute H90.3 Osteopenia Chronic 03/03/18 M85.80 Essential hypertension Chronic 03/03/18 I10 Depression Chronic F32.9 Medical History Medical History Closed fracture of left proximal humerus (09/30/21) Impacted cerumen, bilateral Pelvic pain in female Rotator cuff tear, left Injection: 02/26/2021 Tendinitis of left rotator cuff Injection: 02/26/2021 Tendinitis of long head of biceps brachii of left shoulder Injection: 02/26/2021 Acute shoulder pain due to trauma Travel within last 14 days Family history of colon cancer Rectal polyp Family history of colon cancer Colonoscopy planned Sensorineural hearing loss of both ears Fibroma 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 Low back pain refer to pain clinic 5 days of prednisone Syncope Psoriasis Degeneration of lumbar intervertebral disc Cervical spondylosis Cervical radiculopathy Acute right-sided low back pain with right-sided sciatica (03/03/18) Acute right hip pain (03/03/18) Surgical History Surgical History Arthrofibrosis of total knee arthroplasty Right S/P arthroscopic synovectomy/manipulation: 02/09/2025 History of total right knee replacement (01/20/24) History of total left knee replacement (12/25/21) History of colonoscopy Status post arthroscopy of right shoulder (07/14/19) Debridement, acromioplasty, biceps tenotomy and distal clavicle excision History of foreign body in eye left, s/p excision History of laparoscopic cholecystectomy Hx of rotator cuff surgery left shoulder H/O medial meniscus repair of left knee Tobacco Smoking/Tobacco Use Status: Never Passive smoking exposure: Yes Second hand exposure: Yes Alcohol Alcohol Intake: current Alcohol intake frequency: a few times a month Alcohol type: wine Substance Use Substance use: Never Substance use type: does not use Vital Signs and Lab Results Vital Signs Most Recent Vital Signs in EMR: Most Recent Vital Signs Temp Pulse Resp BP Pulse Ox 36.4 C L 72 16 144/99 H 100 06/27/25 09:35 06/27/25 09:35 06/27/25 09:35 06/27/25 09:35 06/27/25 09:35 Imaging and Studies Imaging and Studies Study information below may be from another EMR and interpreted by another provider. Please see original notes in EMR for more complete details. EKG Summary: EKG PATIENT NAME: Trena Leone UNIT #: [id number] ORDERING PROVIDER: eKnneth Joyce M.D. PRIMARY CARE PROVIDER: LITO SANCHEZ MD, DC DATE/TIME OF SERVICE: 01/05/25943 : 1950 PERFORMING LOCATION: ER APPROVED REPORT Exam: Resting ECG Reason for Exam: Left Sided Weakness Patient Location: E HR:61 bpm ECG Measurements Heart Rate 61 AXIS OK 157 P 59 QRSd 82 QRS 33 QT 438 T58 QTc 442 Conclusion Sinus rhythm...normal P axis, V-rate 60- 99 <Electronically signed by KENNETH JOYCE MD in OV> E-Sign Date: 01/05/25 E-Sign Time: 1647 ADDENDUM APPROVED REPORT Exam: Resting ECG Reason for Exam: Left Sided Weakness Patient Location: E HR:61 bpm ECG Measurements Heart Rate 61 AXIS OK 157 P 59 QRSd 82 QRS 33 QT 438 T58 QTc 442 Conclusion Sinus rhythm...normal P axis, V-rate 60- 99 I have reviewed and interpreted ECG and agree with software generated interpretation. Electronically signed by: <Electronically signed by Michelle Layne M.D. in [place]> 01/06/25 0838 Cosigned by: Anesthesia Assessment and Plan Anesthesia History Personal History: No History of Anesthesia Complications Family History: No Family History of Anesthesia Complications Exercise Tolerance Exercise Tolerance: Metabolic Equivalents>4 Pertinent Negatives Pertinent Negatives: No Symptoms of GERD Cardiac & Pulmonary Exam Cardiac Exam: Normal S1/S2 Heart Sounds Pulmonary Exam: Clear Bilateral Breath Sounds Implantable Cardiac Device Does patient have a Pacemaker or an ICD?: No Airway Exam Known Difficult Airway: No Mallampati Class: 3 Mouth Opening: Narrow (< 3cm) Thyromental Distance: Greater than 3 cm Neck Range of Motion: Full ROM Neck Circumference: Normal Teeth Condition: Normal Dentition ASA Classification ASA Score: ASA 2 Emergency Case?: No NPO Status NPO Status: NPO Clears >2 hours, Solids >8 hours Anesthesia Plan Resuscitation Status: Full Code Anesthesia Technique: General Anesthesia Airway Planned: Natural Airway Monitors Used: Standard Monitors Preoperative Comments:: 74-year-old female with a history of hyperlipidemia, osteopenia, hypertension, and depression presents for colonoscopy screening pre-op.Her last colonoscopy was in 2019, which was remarkable for a hyperplastic polyp. She has a family history of colon cancer in her father.
[2025-06-27 10:42] VITALS: BMI 29.0
--- NOTE | 2025-06-27 10:59 | W.PM.DSUDISC ---
Date of service: 06/27/25 Discharge Plan Disposition Patient Disposition: Home Condition: Stable Discharge Details Reason For Visit: screening due to family history of colon cancer. Attending Provider: Nina Lamb Primary Care Provider: Lorraine Garcia Home Meds and New Rx's Prescriptions: Continued albuterol sulfate 90 mcg/actuation HFA aerosol inhaler 2 puff inhalation DIRECTED Patient Comments: INHALE TWO PUFFS BY MOUTH EVERY 4 HOURS FOR 14 DAYS FOR WHEEZING, COUGHING FIT, SHORTNESS OF BREATH, CHEST TIGHTNESS atorvastatin 20 mg tablet 20 mg PO QPM Qty: 90 4RF docusate sodium [Colace] 100 mg capsule 100 mg PO BID PRN acetaminophen 500 mg tablet 1,000 mg PO TID Qty: 90 0RF hydrochlorothiazide 25 mg tablet 25 mg PO QAM Discontinued bisacodyl 5 mg tablet,delayed release (DR/EC) 5 mg PO ONCE Qty: 4 0RF Rx Instructions: Per Colonoscopy bowel prep instructions polyethylene glycol 3350 17 gram/dose powder 238 g PO ONCE Qty: 238 0RF Rx Instructions: For Colonoscopy bowel prep, as directed by office Discharge Instructions Additional Instructions: Your colonoscopy today is normal! Zero polyps growing, and your prep was excellent and I could see your colon and rectum well. Due to family history of colon cancer in your father, your next colonoscopy will be due in 5 years, even though todays colonoscopy is normal. You are considered a high risk screening person due to that family history, so you will always be 5 years or more often in between scopes. Stand Alone Forms: Anesthesia Discharge Inst., Colonoscopy Post Instructions, Ramon Thompson ([facility]), Portal Information Discharge Orders Discharge Orders: Discharge Order (Routine); Ordered 06/27/25 Ordered By: Nina Lamb DS: Diagnosis Discharge Diagnosis (1) Family history of colon cancer requiring screening colonoscopy: Status: Acute
--- NOTE | 2025-06-27 11:03 | W.COLOREPORT ---
Date of service: 06/27/25 Time of Service: 11:03 Colonoscopy Report Date of procedure: 06/27/25 Pre-op diagnosis general: Screening for colorectal cancer, father had colon cancer Post-op diagnosis procedure note: same (normal colonoscopy) Procedure: Colonoscopy Surgeon: Nina Lamb Anesthesia Type: General:No Airway Estimated blood loss (mL): 0 Pathology: none sent Complications: None Indications: screening for colorectal cancer Prep: Miralax/Dulcolax (excellent) Procedure Description: Informed consent was obtained and the patient was taken to the procedure area. The patient was placed in left lateral decubitus position on the procedure table. Timeout was performed. Anesthesia was induced. A lubricated colonoscope was inserted through the anus and passed to the cecum. The cecum was identified by the ileocecal valve and the appendiceal orifice. The scope was then slowly withdrawn and the colonic and rectal mucosa examined. There are no colon or rectal mass lesions, polyps, AVMs. There is no inflammatory change. No diverticulosis was seen. The scope was retroflexed in the anorectal junction examined. Uncomplicated internal hemorrhoids present. Assessment and plan: Screening for colorectal cancer family history of colon cancer in father Normal colonoscopy. Next screening colonoscopy will be due in 5 years due to family history.
[2025-06-27 11:05] VITALS: BP 110/65; PULSE 62; RESP 12; TEMP 36.4; O2SAT 94
--- NOTE | 2025-06-27 11:13 | W.ANESPOSTOP ---
Postoperative Evaluation Date, Time and Location Date Performed: 06/27/25 Time Performed: 11:05 Patient Location: Day Surgery Unit Vital Signs Most Recent Imported Vital Signs: Most Recent Vital Signs Temp Pulse Resp BP Pulse Ox 36.4 C L 62 12 110/65 94 06/27/25 11:05 06/27/25 11:05 06/27/25 11:05 06/27/25 11:05 06/27/25 11:05 Pain Score Most Recent Pain Score: Most Recent Pain Score Pain Level 0 06/27/25 11:05 Assessment Mental Status: Awake (Alert & Oriented to Patient Baseline) Airway and Respiratory Function: Patent airway with normal (patient baseline) respiratory exam Cardiovascular Function: Hemodynamically Stable Hydration Status: Adequately Hydrated Nausea & Vomiting: No Nausea or Vomiting Pain: Pt. Denies Any Pain Peripheral Nerve Block: Patient did not receive a nerve block
[2025-06-27 11:34] VITALS: BP 128/90; PULSE 66; RESP 16; TEMP 36.4; O2SAT 97
== END 2025-06-27 12:00 | disposition home or self-care (01) ==
PROVIDERS: PCP Family Medicine; Visit Provider Surgery
PROC: 0DJD8ZZ Inspection of Lower Intestinal Tract, Via Natural or Artificial Opening Endoscopic (ICD-10-PCS; CPT 45378; principal; 2025-06-27 10:15)
DX: Z12.11 Encounter for screening for malignant neoplasm of colon (principal); Z80.0 Family history of malignant neoplasm of digestive organs; Z86.0102 Personal history of hyperplastic colon polyps; I10 Essential (primary) hypertension
CPT/HCPCS: G0105; J2003; J2704

== ENCOUNTER → 2025-07-07 12:56 | Outpatient (BNVA) | payer MEDICARE, BC, SELFPAY | PROVIDERS: PCP Family Medicine; Referring Provider Family Medicine; Visit Provider Student in an Organized Health Care Education/Training Program | DX: M70.51 Other bursitis of knee, right knee (principal); Z96.651 Presence of right artificial knee joint | CPT/HCPCS: 20610; J1010 ==